=== PATIENT | female | born 1990 | race Caucasian/White ===

== ENCOUNTER → 2019-08-10 10:14 | Outpatient (CLI) | payer OTHER, MEDICAID, SELFPAY ==
[2019-08-10 10:38] LABS: Add Manual Diff / Slide Review NO; Basophils Absolute Auto 100 /uL (0-100); Basophils Percent Auto 0.6 % (0-2); Eosinophils Absolute Auto 100 /uL (0-450); Eosinophils Percent Auto 0.8 % (2-4); Hemoglobin 12.5 g/dL (12.0-16.0); Lymphocytes Absolute Auto 1500 /uL (1100-4500); Lymphocytes Percent Auto 16.9 % (25-40); Mean Corpuscular HGB Conc 33.9 % (30-36); Mean Corpuscular Hemoglobin 29.4 PG (26-34); Mean Corpuscular Volume 86.7 fL (80-100); Monocytes Absolute Auto 600 /uL (0-900); Monocytes Percent Auto 6.8 % (3-14); Neutrophils Absolute Auto 6600 /uL (1500-7000); Neutrophils Percent Auto 74.9 % (50-75); Platelet Count 193 X10^3/uL (150-400); Red Blood Cell Count 4.26 X10^6/uL (4.0-5.2); Red Cell Distribution Width 14.9 % (11.6-14.8); White Blood Cell Count 8.8 X10^3/uL (4.5-11.0)
[2019-08-10 14:40] LABS: Appearance Urine UA SL CLOUDY; Bilirubin Urine UA NEGATIVE (NEGATIVE); Color Urine UA YELLOW; Glucose Urine UA NEGATIVE (Negative); Ketones Urine UA NEGATIVE (NEGATIVE); Leukocyte Esterase Urine UA TRACE (NEGATIVE); Nitrite Urine UA NEGATIVE (Negative); Occult Blood Urine UA NEGATIVE (Negative); Protein Urine UA NEGATIVE (Negative); Specific Gravity Urine UA 1.015 (1.000-1.035); Urobilinogen Urine UA 0.2 E.U./dL (0.2)
[2019-08-10 15:15] LABS: pH Urine UA 7.5 (4.5-8.0)
[2019-08-10 15:16] LABS: RBC Urine None Seen (0-5/HPF)
[2019-08-10 15:22] LABS: Amorphous Sediment Urine 1+; Bacteria Urine Many (>30); Renal Epithelial Cells Urine 0-1/HPF (0-1/HPF); Squamous Epithelial Cell Urine 5-10 /HPF (0-5/HPF); WBC Urine 5-10/HPF (0-5/HPF)
[2019-08-10 16:00] LABS: Hepatitis B Surface Antigen NEGATIVE s/c (NEGATIVE); Rubella Antibody IgG 12.7 IU/mL (>15)
[2019-08-10 16:15] LABS: HIV 1 & 2 Ab/Ag 4th Gen Combo NEGATIVE (NEGATIVE); Hep C Virus Ab w/Reflex Quant NEGATIVE s/c (NEGATIVE)
[2019-08-11 03:07] LABS: RPR Screen Non Reactive (Non Reactive)
[2019-08-11 08:20] LABS: Varicella IgG Antibody <135 index (Immune >165)
== END ==
PROVIDERS: Referring Provider Obstetrics & Gynecology; Visit Provider Obstetrics & Gynecology
DX: Z34.81 Encounter for supervision of other normal pregnancy, first trimester (principal); Z3A.08 8 weeks gestation of pregnancy
CPT/HCPCS: 36415; 80055; 81003; 81015; 86787; 86803; 86850; 86900; 86901; 87077; 87086; 87186; 87389

== ENCOUNTER → 2019-09-04 12:09 | Outpatient (CLI) | payer OTHER, MEDICAID, SELFPAY ==
--- NOTE | 2019-09-04 12:13 | DI.US.S_ITS ---
PROCEDURE: US OB >= 14 WEEKS FETUS INDICATIONS: Anatomy Survey OUTSIDE/PRIOR DATING DATA: Last menstrual period (LMP): Unknown. LMP-based estimated date of delivery (VITO): Unknown. First dating scan (date and location): 06/17/19. Estimated date of delivery (VITO) from first dating scan: 01/29/20. TECHNIQUE: Real-time scanning was performed of the fetus, with image documentation and biometric measurements. Endovaginal scanning: Not performed COMPARISON: [facility], , OB <= 14 WEEKS FETUS, 06/17/2019, 13:54. FINDINGS: General: A single living intrauterine gestation is present. Presentation: Vertex/variable. Placenta: Placental position is anterior, without previa. Amniotic fluid index: 15.3 cm, normal range is 5-24 cm. heart rate: 135 beats per minute. Maternal cervical canal: 5.7 cm long. Normal lower limit is 2.5 cm. biometrics: Biparietal diameter: 4.6 cm, 19 weeks 5 days Head circumference: 16.8 cm, 19 weeks 3 days Abdominal circumference: 14.9 cm, 20 weeks one day Femur length: 3.0 cm, 19 weeks 2 days Estimated gestational age from initial scan: 19 weeks zero days Composite gestational age from present scan: 19 weeks 5 days Estimated weight and percentile: 310 g, 86th percentile Measurement variability for biometric dating: +/- 7 days from 14 weeks to 15 weeks 6 days gestation, +/- 10 days from 16 weeks to 21 weeks 6 days gestation, +/- 2 weeks from 22 weeks to 27 weeks 6 days gestation, +/- 3 weeks for 28 weeks gestation or later. weight reference: 4500 g or EFW >90/95% is considered macrosomia or large for gestational age. EFW <10% is small for gestational age. EFW 5% or less is considered intra-uterine growth restriction. Anatomic survey: Neuro: Ventricles are non-dilated at less than 10 mm. Cisterna magna is normal at 3-11 mm. Cerebellum is normal in size and morphology. Nuchal skin fold: Normal at less than 6 mm between 14-21 weeks gestational age. Face: Nose and lips, facial profile are normal. Spine: No evidence for spina bifida. Heart: 4-chambered heart is present, with normal ventricular outflow tracts. Diaphragm: Diaphragm is intact. Stomach: Left-sided stomach is present. Kidneys: No hydronephrosis. Normal is less than 5 mm in 2nd trimester, less than 7 mm in 3rd trimester. Cord: 3-vessel cord has orthotopic insertion. Bladder: Normal in size. Extremities: All 4 extremities identified. IMPRESSION: Single living intrauterine fetus in vertex/variable presentation. Expected interval growth as above Normal anatomic survey Dictated by: Ayden Washington M.D. on 09/04/2019 at 16:02 Approved by: Ayden Washington M.D. on 09/04/2019 at 16:05
== END ==
PROVIDERS: Referring Provider Obstetrics & Gynecology; Visit Provider Obstetrics & Gynecology
DX: Z36.89 Encounter for other specified antenatal screening (principal); Z3A.19 19 weeks gestation of pregnancy
CPT/HCPCS: 76811

== ENCOUNTER 2019-11-14 21:45 | Emergency (ER) | payer OTHER, MEDICAID, SELFPAY ==
[2019-11-14 21:57] VITALS: BP 125/68; PULSE 70; RESP 20; TEMP 37.1; O2SAT 98; BMI 32.1
--- NOTE | 2019-11-14 22:04 | ED_ITS ---
HPI - Nausea/Vomiting/Diarrhea General Chief complaint: Nausea/Vomiting/Diarrhea Stated complaint: vomiting Time Seen by Provider: 11/14/19 21:55 Source: patient Mode of arrival: Ambulatory Limitations: no limitations History of Present Illness HPI Narrative: 29-year-old female nonsmoker is a 28 weeks and presents with a chief complaint of persistent nausea and vomiting over the course of the day. She has had a relatively easy to this point and woke up feeling a bit nauseated and went to her glucose tolerance test which seemed to make her symptoms much worse. Since then she has had significant nausea and vomiting. She is feeling a bit fatigued and lightheaded. She denies any fever or chills. She has had no runny nose, sore throat or cough. She denies any cramping, contractions, vaginal bleeding or leakage of fluid. She denies dysuria, frequency or urgency. 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 on- call MD complaint: nausea and vomiting Onset (ago): hour(s) Description of Vomiting: food contents Description of Diarrhea: none Associated Abdominal Pain: No Severity: mild Relieving factors: none Exacerbating factors: none Associated symptoms: denies other symptoms and nausea/vomiting Related Data Home Medications Medication Instructions Recorded Confirmed fluoxetine 40 mg capsule 40 mg PO DAILY 05/27/19 05/27/19 prenat.vits,geraldo,mns-[id number]-dovhw 1 tab PO DAILY 05/27/19 05/27/19 Previous Rx's Medication Instructions Recorded nitrofurantoin 100 mg PO BID #60 cap 08/13/19 monohydrate/macrocrystals 100 mg capsule ondansetron 4 mg PO TID-QID PRN #10 tab 11/15/19 Allergies Allergy/AdvReac Type Severity Reaction Status Date / Time No Known Drug Allergies Allergy Unverified 05/27/19 17:55 Review of Systems Constitutional Constitutional: Denies chills, Reports fatigue, Denies fever(s), Denies frequent falls, Denies lethargy and Reports weakness Eyes Eyes: Denies change in vision, Denies eye discharge, Denies irritation and Denies loss of vision ENT Ears, Nose, Mouth, and Throat: Denies change in voice, Denies dizziness, Denies neck pain, Denies sore throat and Denies throat swelling Cardiovascular Cardiovascular: Denies chest pain, Denies irregular heart rhythm, Denies lightheadedness, Denies palpitations, Denies dyspnea, Denies dyspnea on exertion and Denies orthopnea Respiratory Respiratory: Denies cough, Denies dyspnea, Denies dyspnea on exertion and Denies wheezing Gastrointestinal Gastrointestinal: Denies abdominal pain, Denies change in bowel habits, Denies diarrhea, Denies nausea and Reports vomiting Musculoskeletal Musculoskeletal: Denies neck pain and Denies numbness Integumentary/Breasts Skin/Breast: Denies pruritus, Denies erythema, Denies rash and Denies wounds Neurologic Neurologic: Denies behavioral changes, Denies confusion, Denies dizziness, Denies frequent falls, Denies loss of vision, Denies numbness and Reports weakness Psychiatric Psychiatric: Denies anxiety, Denies behavioral changes, Denies confusion, Denies depression, Denies homicidal ideation and Denies suicidal ideation Endocrine Endocrine: Reports fatigue, Denies flushing and Denies palpitations Hematologic/Lymphatic Hematologic/Lymphatic: Denies easy bruising Allergic/Immunologic Allergic/Immunologic: Denies urticaria, Denies throat swelling and Denies wh eezing Patient History Surgical History (Updated 05/27/19 @ 18:04 by Casie Warren MA) delivery delivered (Acute ~03/18/18) delivery delivered (Acute 10/27/12) Social History marital status: unmarried,living together details: Jimy [phone] number of children: 2 household members: significant other and children (2 children ) lives independently: Yes pets and animals: Yes (1 cat, Knows about litter box. 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) special marv needs: No seatbelt use: always water heater temp set < 120 deg: Yes working smoke detector in home: Yes fire extinguisher in home: No carbon monox detector in home: Yes firearms in home: No do you feel safe at home: Yes in current or past relationships, have you been: other (In past relationship) Smoking Status: Never smoker second hand exposure: No alcohol intake: former substance use type: marijuana (Tapering off ) during the past year weight has: decreased > 10 lbs well-balanced diet: rarely or never daily servings fruits/ve-1 caffeine: Yes (Tapering off) eating out: 1-3 times/week Type(s) of exercise: other (Hiking) and yoga frequency: 1-2 times per week Smoking Status: Never smoker alcohol intake frequency: 0-2 drinks per day Substance Use Type: does not use Exam Narrative Exam Narrative: GENERAL: [29] year old patient appears stated age. Well- nourished, well-developed patient, in mild distress. HEAD: Atraumatic. Normocephalic. EYES: Pupils equal round and reactive. Extraocular motions intact. No scleral icterus. No injection or drainage. ENT: Nose without bleeding, purulent drainage. Throat without erythema, tonsillar hypertrophy or exudate. Airway patent. NECK: Trachea midline. Non tender CARDIOVASCULAR: Regular rate and rhythm without murmurs, gallops, or rubs. RESPIRATORY: Clear to auscultation. Breath sounds equal bilaterally. No wheezes, rales, or rhonchi. GASTROINTESTINAL: Abdomen soft, gravid above the umbilicus EXTREMITIES: No edema or joint tenderness. BACK: Nontender without deformity or crepitance. No flank tenderness. NEURO: AOx3. SKIN: No rash or erythema of visible areas Initial Vital Signs Initial Vital Signs: Vital Signs Temperature 98.8 F 11/14/19 21:57 Pulse Rate 70 11/14/19 21:57 Respiratory Rate 20 11/14/19 21:57 Blood Pressure 125/68 11/14/19 21:57 Pulse Oximetry 98 11/14/19 21:57 Course Course Course Narrative: patient with near complete resolution of symptoms, feels great after fluids. Upon discharge sent to L&D at request of OB Orders Ordered: ED Orders 11/14/19 22:35 Urine Microscopic Stat 11/14/19 22:37 Complete Blood Count AUTO DIFF Stat Comprehensive Metabolic Panel Stat Ketones (Beta-Hydroxybutyrate) Stat Magnesium Stat Discontinued Medications Sodium Chloride (Normal Saline 0.9%) 1,000 mls @ 1,000 mls/hr IV BOLUS ONE Stop: 11/14/19 23:04 Last Infusion: 11/14/19 23:36 Dose: 0 mls/hr Documented by: Admin: 11/14/19 22:22 Dose: 1,000 mls/hr Documented by: MARTIN Ondansetron HCl (Zofran) 4 mg IV Q4HR PRN PRN Reason: Nausea And Vomiting Last Admin: 11/14/19 22:22 Dose: 4 mg Documented by: MARTIN Vital Signs Vital signs: Vital Signs - 8 hr 11/14/19 21:57 11/14/19 22:33 11/14/19 22:53 Temperature 98.8 F Pulse Rate 70 62 69 Respiratory Rate 20 17 Blood Pressure 125/68 120/61 Pulse Oximetry 98 94 99 11/14/19 23:00 11/14/19 23:30 11/15/19 00:00 Temperature Pulse Rate 66 62 70 Respiratory Rate Blood Pressure 119/71 107/57 L 110/59 L Pulse Oximetry 100 100 99 MDM - Nausea/Vomiting/Diarrhea Lab Data Result diagrams: 11/14/19 22:37 11/14/19 22:37 Labs: Lab Results 11/14/19 11/14/19 11/14/19 Range/Units 22:35 22:37 22:37 WBC 13.4 H (4.5-11.0) X10^3/uL RBC 4.16 (4.0-5.2) X10^6/uL Hgb 11.6 L (12.0-16.0) g/dL Hct 35.1 L (36-46) % MCV 84.5 (80-100) fL MCH 27.8 (26-34) PG MCHC 32.9 (30-36) % RDW 14.3 (11.6-14.8) % Plt Count 214 (150-400) X10^3/uL Neut % (Auto) Not Reportable Lymph % (Auto) Not Reportable [place] % (Auto) Not Reportable Eos % (Auto) Not Reportable Baso % (Auto) Not Reportable Lymph # (Auto) Not Reportable [place] # (Auto) Not Reportable Baso # (Auto) Not Reportable Total Counted 100 Seg Neutrophils % 86.0 H (38-70) % Lymphocytes % (Manual) 10.0 L (25-45) % Monocytes % (Manual) 4.0 (2-11) % Neutrophils # (Manual) 27369 H (4005-7233) /uL RBC Morphology Normal morphology Sodium 135 L (137-145) mmol/L Potassium 3.7 (3.4-5.1) mmol/L Chloride 102 (98-107) mmol/L Carbon Dioxide 22 (22-32) mmol/L BUN 8 (7-17) mg/dL Creatinine 0.49 L (0.52-1.04) mg/dL Estimated GFR > 60.0 (>60) mL/min BUN/Creatinine Ratio 16.3 (6-22) Glucose 90 (70-100) mg/dL Calcium 9.0 (8.4-10.2) mg/dL Magnesium 1.7 (1.6-2.3) mg/dL Total Bilirubin 0.6 (0.2-1.3) mg/dL AST 29 (14-36) IU/L ALT 19 (<35) IU/L Alkaline Phosphatase 134 H (38-126) U/L Total Protein 7.8 (6.3-8.2) g/dL Albumin 4.3 (3.5-5.0) g/dL Globulin 3.5 (1.7-4.1) g/dL Albumin/Globulin Ratio 1.2 (1.0-2.8) Urine RBC None seen (0-5/HPF) Urine WBC 0-1/hpf (0-5/HPF) Ur Squamous Epith Cells 5-10 /hpf H (0-5/HPF) Urine Bacteria Few (2-10) H (None) Urine Mucus 4+ H (Negative) Ur Culture Indicated? Cult not indicated Ketones (<0.27) mmol/L COVID-19 PCR (Negative) 11/14/19 11/14/19 Range/Units 22:37 22:37 WBC (4.5-11.0) X10^3/uL RBC (4.0-5.2) X10^6/uL Hgb (12.0-16.0) g/dL Hct (36-46) % MCV (80-100) fL MCH (26-34) PG MCHC (30-36) % RDW (11.6-14.8) % Plt Count (150-400) X10^3/uL Neut % (Auto) Lymph % (Auto) [place] % (Auto) Eos % (Auto) Baso % (Auto) Lymph # (Auto) [place] # (Auto) Baso # (Auto) Total Counted Seg Neutrophils % (38-70) % Lymphocytes % (Manual) (25-45) % Monocytes % (Manual) (2-11) % Neutrophils # (Manual) (2591-6436) /uL RBC Morphology Sodium (137-145) mmol/L Potassium (3.4-5.1) mmol/L Chloride (98-107) mmol/L Carbon Dioxide (22-32) mmol/L BUN (7-17) mg/dL Creatinine (0.52-1.04) mg/dL Estimated GFR (>60) mL/min BUN/Creatinine Ratio (6-22) Glucose (70-100) mg/dL Calcium (8.4-10.2) mg/dL Magnesium (1.6-2.3) mg/dL Total Bilirubin (0.2-1.3) mg/dL AST (14-36) IU/L ALT (<35) IU/L Alkaline Phosphatase (38-126) U/L Total Protein (6.3-8.2) g/dL Albumin (3.5-5.0) g/dL Globulin (1.7-4.1) g/dL Albumin/Globulin Ratio (1.0-2.8) Urine RBC (0-5/HPF) Urine WBC (0-5/HPF) Ur Squamous Epith Cells (0-5/HPF) Urine Bacteria (None) Urine Mucus (Negative) Ur Culture Indicated? Ketones 1.07 H (<0.27) mmol/L COVID-19 PCR Negative (Negative) Urine Dip Bedside Urine Glucose Negative Bedside Urine Bilirubin + 1 Bedside Urine Ketone +++ 80 Urine Specific [place] 1.030 Bedside Urine Occult Blood - Negative Bedside Urine pH 6.0 Bedside Urine Protein ++ 100 Bedside Urine Urobilinogen +/- 1mg Bedside Urine Nitrite - Negative Bedside Urine Leukocytes - Negative Esterase Discharge Plan Departure Patient Disposition: Home Clinical Impression: Qualifiers: Weeks of gestation: 28 weeks Qualified Code(s): Z3A.28 - 28 weeks gestation of Vomiting Qualifiers: Vomiting type: unspecified Vomiting Intractability: non-intractable Nausea presence: with nausea Qualified Code(s): R11.2 - Nausea with vomiting, unspecified Discharge Date/Time: 11/15/19 01:46 Instructions: DI for Dehydration -- Adult, DI for Vomiting -- Adult Activity Restrictions/Additional Instructions: Please proceed directly to Labor and Delivery as they are expecting you. 1. Drink plenty of fluids with frequent small sips. 2. For the next 24 hours a clear liquid diet is advised. After that please employ a brat diet which would include bananas, rice, apples, toast. 3. Please take medications as directed. A prescription for Zofran was sent to [facility] in [place] 4. Please follow-up with your doctor in the next 1-2 days. Call the office for an appointment. 5. Please return to the emergency Department for any worsening or persistent symptoms, such as increasing pain or fever. Prescriptions: New ondansetron 4 mg tablet,disintegrating 4 mg PO TID-QID PRN (Reason: nausea and vomiting) Qty: 10 RF: 0 No Action nitrofurantoin monohyd/m-cryst [Macrobid] 100 mg capsule 100 mg PO BID Qty: 60 RF: 5 fluoxetine 40 mg capsule 40 mg PO DAILY RF: 0 prenat.vits,geraldo,[id number]-ehqj-pycef Tablet 1 tab PO DAILY RF: 0 Referrals: Stephany Alanis MD [Physician] -
[2019-11-14] MEDS: ONDANSETRON 4 MG/2 ML INJ IV (22:22)
[2019-11-14] MEDS: SODIUM CHLORIDE 0.9% 1,000 ML 1000 ML IV (22:22)
[2019-11-14 22:33] VITALS: BP 120/61; PULSE 62; RESP 17; O2SAT 94
[2019-11-14 22:50] LABS: RBC Urine None Seen (0-5/HPF)
[2019-11-14 22:52] LABS: Hematocrit 35.1 % (36-46); Hemoglobin 11.6 g/dL (12.0-16.0); Mean Corpuscular HGB Conc 32.9 % (30-36); Mean Corpuscular Hemoglobin 27.8 PG (26-34); Mean Corpuscular Volume 84.5 fL (80-100); Platelet Count 214 X10^3/uL (150-400); Red Blood Cell Count 4.16 X10^6/uL (4.0-5.2); Red Cell Distribution Width 14.3 % (11.6-14.8); White Blood Cell Count 13.4 X10^3/uL (4.5-11.0)
[2019-11-14 22:53] VITALS: PULSE 69; O2SAT 99
[2019-11-14 22:58] LABS: Alanine Aminotransferase 19 IU/L (<35); Albumin 4.3 g/dL (3.5-5.0); Albumin Globulin Ratio 1.2 (1.0-2.8); Alkaline Phosphatase 134 U/L (38-126); Aspartate Aminotransferase 29 IU/L (14-36); BUN Creatinine Ratio 16.3 (6-22); Bilirubin Total 0.6 mg/dL (0.2-1.3); Blood Urea Nitrogen 8 mg/dL (7-17); Carbon Dioxide 22 mmol/L (22-32); Chloride 102 mmol/L (98-107); Estimated Glomerular Filt Rate > 60.0 mL/min (>60); Globulin 3.5 g/dL (1.7-4.1); Glucose 90 mg/dL (70-100); HEMOLYSIS < 15 (0-50); Magnesium 1.7 mg/dL (1.6-2.3); Potassium 3.7 mmol/L (3.4-5.1); Sodium 135 mmol/L (137-145); Total Protein 7.8 g/dL (6.3-8.2)
[2019-11-14 22:59] LABS: Ketones (Beta-Hydroxybutyrate) 1.07 mmol/L (<0.27)
[2019-11-14 23:00] VITALS: BP 119/71; PULSE 66; O2SAT 100
[2019-11-14 23:01] LABS: Add Manual Diff / Slide Review YES
[2019-11-14 23:11] LABS: Bacteria Urine Few (2-10); Culture Indicated Urine Cult Not Indicated; Mucus Urine 4+ (Negative); Squamous Epithelial Cell Urine 5-10 /HPF (0-5/HPF); WBC Urine 0-1/HPF (0-5/HPF)
[2019-11-14 23:30] VITALS: BP 107/57; PULSE 62; O2SAT 100
[2019-11-14 23:36] LABS: Neutrophils Absolute Manual 11524 /uL (3000-5900); RBC Morphology Normal Morphology; Total Cells Counted 100
[2019-11-14 23:53] LABS: COVID19 -Nasal RAPID Negative (Negative)
[2019-11-15] VITALS: BP 110/59; PULSE 70; O2SAT 99
== END 2019-11-15 01:46 | disposition home or self-care (01) ==
PROVIDERS: Emergency Provider Emergency Medicine
DX: O21.9 Vomiting of pregnancy, unspecified (principal); Z3A.28 28 weeks gestation of pregnancy
CPT/HCPCS: 36415; 80053; 81003; 81015; 82009; 83735; 85025; 87635; 96361; 96374; 99284; J2405

== ENCOUNTER 2019-11-15 01:48 | Outpatient (CLI) | payer OTHER, MEDICAID, SELFPAY ==
--- NOTE | 2019-11-15 08:59 | PM.OBTRLD ---
Visit Information Visit Information Date of evaluation: 11/15/19 Primary OB Provider: Stephany Alanis On-call OB Provider: Brittanie Keene Reason for Evaluation: Yes non-stress test and Yes other Comments/Additional reasons for admission: nausea and vomiting [facility] Surgical History (Updated 05/27/19 @ 18:04 by Caise Warren MA) delivery delivered (Acute ~03/18/18) delivery delivered (Acute 10/27/12) Social History marital status: unmarried,living together details: Jimy [phone] number of children: 2 household members: significant other and children (2 children ) lives independently: Yes pets and animals: Yes (1 cat, Knows about litter box. 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 needs: No seatbelt use: always water heater temp set < 120 deg: Yes working smoke detector in home: Yes fire extinguisher in home: No carbon monox detector in home: Yes firearms in home: No do you feel safe at home: Yes in current or past relationships, have you been: other (In past relationship) Smoking Status: Never smoker second hand exposure: No alcohol intake: former substance use type: marijuana (Tapering off ) during the past year weight has: decreased > 10 lbs well-balanced diet: rarely or never daily servings fruits/ve-1 caffeine: Yes (Tapering off) eating out: 1-3 times/week Type(s) of exercise: other (Hiking) and yoga frequency: 1-2 times per week Evaluation Evaluation Baseline heart rate: 135 Variability: Moderate (11-25) monitor accelerations: Present monitor decelerations: Absent Category of Tracing: I Diagnosis, Plan/Disposition Plan/Disposition Plan: Assessment: 29-year-old 3 para 2 at 28 1/2 weeks gestation with nausea and vomiting and subsequent dehydration Patient received IV Zofran and 2 L of IV fluids Plan: Follow-up with Dr. Alanis as scheduled OB Disposition: home
== END 2019-11-15 02:12 | disposition home or self-care (01) ==
LOC: LABOR 02:01 → OB 12-10 10:27
PROVIDERS: PCP Obstetrics & Gynecology; Referring Provider Obstetrics & Gynecology; Visit Provider Obstetrics & Gynecology
DX: O21.9 Vomiting of pregnancy, unspecified (principal); Z3A.28 28 weeks gestation of pregnancy
CPT/HCPCS: 59025; G0378; G0379

== ENCOUNTER → 2019-11-27 09:21 | Outpatient (CLI) | payer OTHER, MEDICAID, SELFPAY ==
[2019-11-27 11:56] LABS: Hemoglobin 9.9 g/dL (12.0-16.0)
[2019-11-27 12:08] LABS: GTT (PREG) 1 Hour PP 50gm Dose 84 mg/dL (76-139)
== END ==
PROVIDERS: PCP Obstetrics & Gynecology; Referring Provider Obstetrics & Gynecology; Visit Provider Obstetrics & Gynecology
DX: Z34.03 Encounter for supervision of normal first pregnancy, third trimester (principal)
CPT/HCPCS: 36415; 82950; 85014; 85018

== ENCOUNTER 2019-12-14 14:06 | Outpatient (CLI) | payer OTHER, MEDICAID, SELFPAY ==
--- NOTE | 2019-12-14 17:09 | PM.OBTRLD ---
Visit Information Visit Information Date of evaluation: 12/14/19 Primary OB Provider: Stephany Alanis Reason for Evaluation: Yes non-stress test Comments/Additional reasons for admission: Patient is a 29-year-old 002 at 33 weeks sent for NST due to low heart rate noted in clinic. No complaints obstetrical or otherwise, contractions not palpable or symptomatic. Vital Signs Vital Signs: 109/60, HR 72 PFSH Surgical History delivery delivered (Acute ~03/18/18) delivery delivered (Acute 10/27/12) Social History marital status: unmarried,living together details: Jimy [phone] number of children: 2 household members: significant other and children (2 children ) lives independently: Yes pets and animals: Yes (1 cat, Knows about litter box. 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 needs: No seatbelt use: always water heater temp set < 120 deg: Yes working smoke detector in home: Yes fire extinguisher in home: No carbon monox detector in home: Yes firearms in home: No do you feel safe at home: Yes in current or past relationships, have you been: other (In past relationship) Smoking Status: Never smoker second hand exposure: No alcohol intake: former substance use type: marijuana (Tapering off ) during the past year weight has: decreased > 10 lbs well-balanced diet: rarely or never daily servings fruits/ve-1 caffeine: Yes (Tapering off) eating out: 1-3 times/week Type(s) of exercise: other (Hiking) and yoga frequency: 1-2 times per week Evaluation Evaluation Baseline heart rate: 125 Variability: Moderate (11-25) monitor accelerations: Present monitor decelerations: Absent Category of Tracing: Reactive Diagnosis, Plan/Disposition Plan/Disposition Plan: Home with standard precautions.
== END 2019-12-14 14:43 | disposition home or self-care (01) ==
LOC: LABOR 14:31 → OB 12-15 09:28
PROVIDERS: PCP Obstetrics & Gynecology; Referring Provider Obstetrics & Gynecology; Visit Provider Obstetrics & Gynecology
DX: O36.8330 Maternal care for abnormalities of the fetal heart rate or rhythm, third trimester, not applicable or unspecified (principal); Z3A.33 33 weeks gestation of pregnancy
CPT/HCPCS: 59025; G0378; G0379

== ENCOUNTER → 2019-12-29 16:46 | Outpatient (CLI) | payer OTHER, MEDICAID, SELFPAY ==
[2019-12-30 15:47] LABS: Strep Grp B PCR NEG for Grp B Strep
== END ==
PROVIDERS: PCP Obstetrics & Gynecology; Visit Provider Obstetrics & Gynecology
DX: Z34.83 Encounter for supervision of other normal pregnancy, third trimester (principal); Z3A.36 36 weeks gestation of pregnancy
CPT/HCPCS: 87653

== ENCOUNTER 2020-01-15 11:54 | Outpatient (CLI) | payer OTHER, MEDICAID, SELFPAY | END 2020-01-15 12:30 | disposition home or self-care (01) | LOC: LABOR 12:38 → OB 01-18 15:08 | PROVIDERS: PCP Obstetrics & Gynecology; Referring Provider Obstetrics & Gynecology; Visit Provider Obstetrics & Gynecology | DX: Z34.83 Encounter for supervision of other normal pregnancy, third trimester (principal); Z3A.38 38 weeks gestation of pregnancy | CPT/HCPCS: 59025; G0378; G0379 ==

== ENCOUNTER → 2020-01-18 09:13 | Outpatient (CLI) | payer OTHER, MEDICAID, SELFPAY ==
[2020-01-19 02:27] LABS: COVID19 Sendout Not Detected (Not Detect)
== END ==
PROVIDERS: PCP Obstetrics & Gynecology; Visit Provider Physician Assistant
DX: Z11.59 Encounter for screening for other viral diseases (principal)
CPT/HCPCS: 87635

== ENCOUNTER 2020-01-19 16:33 | Inpatient (IN) | payer OTHER, MEDICAID, SELFPAY ==
--- NOTE | 2020-01-19 16:42 | DI.US.S_ITS ---
PROCEDURE: US OB BIOPHYSICAL PROFILE INDICATIONS: 39 weeks, previous C/S OUTSIDE/PRIOR DATING DATA: Last menstrual period (LMP): Unknown. LMP-based estimated date of delivery (VITO): Unknown. First dating scan (date and location): 06/17/2019. Estimated date of delivery (VITO) from first dating scan: 01/29/2020. TECHNIQUE: Real-time scanning was performed of the fetus, with image documentation and biometric measurements. Biophysical profile was also obtained. Endovaginal scanning: Not performed COMPARISON: [facility], , US OB >= 14 WEEKS FETUS, 01/15/2020, 11:44. FINDINGS: General: A single living intrauterine gestation is present. Presentation: Vertex Placenta: Placental position is anterior, without previa. Amniotic fluid index: 6 cm, normal range is 5-24 cm. heart rate: 144 beats per minute. Maternal cervical canal: 4.5 cm long. Normal lower limit is 2.5 cm. Biophysical profile: Tone: 2 points. Movement: 2 points. Respiration: 2 points. Largest pocket of fluid: 2 points. Left lower quadrant IMPRESSION: Single live intrauterine . Biophysical profile score 8 of 8. Dictated by: Hollis Mcrae M.D. on 01/19/2020 at 18:35 Approved by: Hollis Mcrae M.D. on 01/19/2020 at 18:38
--- NOTE | 2020-01-19 18:34 | P.HPOB_ITS ---
OB HPI Date/Time Date of admission: 01/19/20 Date Patient Seen: 01/19/20 Time Patient Seen: 18:34 History of Present Condition Chief complaint: observation of labor : 3 Para: 2 Estimated Date of Delivery: 01/26/20 Estimated Gestational Age (weeks): 39 Narrative: Jennifer Alaniz is a 29 year old 002 at 39 weeks 0 days with a history of 2 prior sections, presenting to Labor and delivery with decreased movement and revealed to be in early labor. The patient reports that she has been having contractions since yesterday, with some breaks. She reports that since this afternoon, they have become increasingly frequent, now Q 2-3 and quite painful. She reports vaginal pressure, and reported decreased movement that has now resolved. She denies vaginal bleeding or loss of fluid, and is otherwise feeling well with no neurologic or other complaints. Her has been uncomplicated. She has a history of 2 term sections, the 1st for failure to progress and the 2nd for scheduled repeat. The patient has a history of frequent UTIs and has been on antibiotics during this , Keflex since 36 weeks. She has no other contributory medical or surgical history, though anemia was revealed at her 3rd trimester labs which was treated with oral iron. Indications Operative indications ( section): previous uterine surgery History of Present care: good care, initiated at week # (8), number of visits (11) and pounds weight gain (51) Dating criteria: LMP confirmed by 1st trimester US Ultrasounds: normal 1st trimester US and normal mid trimester US Obstetrical complications: none Medical complications: none Preadmission Labs Blood type: O (+) positive -: Antibody screen: negative, GBS status: negative, HBsAG: negative, HIV: negative and RPR/VDLR: negative -: Rubella: not immune and Varicella: not immune Integrated screen: declined aneuploidy screening Urine: wnl 1 hr GTT: 84 Prior (ies) History: G1: 10/27/12, 37 wks, pCS for labor arrest, F, Ralph G2: 03/18/18, 40 wks, F, rCS, [place] Evaluation Evaluation Baseline heart rate: 135 Variability: Moderate (11-25) monitor accelerations: Present monitor decelerations: Variable (Rare) Contraction Frequency (minutes): 3 Uterine Contraction Intensity: Moderate Category of Tracing: Reactive Cervical dilation (cm): 0 Cervical effacement (%): 100 station: -1 Comments: Contractions not always visible on toco but audible from nurse's station, Q 2-3. FOR[facility]LY [facility], [facility] Surgical History delivery delivered (Acute ~03/18/18) delivery delivered (Acute 10/27/12) Social History marital status: unmarried,living together details: Jimy [phone] number of children: 2 household members: significant other and children (2 children ) lives independently: Yes pets and animals: Yes (1 cat, Knows about litter box. 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, [employer]) special marv needs: No seatbelt use: always water heater temp set < 120 deg: Yes working smoke detector in home: Yes fire extinguisher in home: No carbon monox detector in home: Yes firearms in home: No do you feel safe at home: Yes in current or past relationships, have you been: other (In past relationship) Smoking Status: Never smoker second hand exposure: No alcohol intake: former substance use type: marijuana (Tapering off ) during the past year weight has: decreased > 10 lbs well-balanced diet: rarely or never daily servings fruits/ve-1 caffeine: Yes (Tapering off) eating out: 1-3 times/week Type(s) of exercise: other (Hiking) and yoga frequency: 1-2 times per week Meds Home Medications and Allergies Home Medications Medication Instructions Recorded Confirmed Type fluoxetine 40 mg capsule 40 mg PO DAILY 05/27/19 01/15/20 History prenat.vits,geraldo,qjf-qvqd-gdxgx 1 tab PO DAILY 05/27/19 01/15/20 History ondansetron 4 mg PO TID-QID PRN #10 tab 11/15/19 01/15/20 Rx cephalexin 500 mg tablet 500 mg PO DAILY #30 tab 12/29/19 01/15/20 Rx Allergies Allergy/AdvReac Type Severity Reaction Status Date / Time No Known Drug Allergies Allergy Verified 01/15/20 11:37 Review of Systems Constitutional Constitutional: Reports system reviewed and no additional complaints, except as documented Cardiovascular Cardiovascular: Reports system reviewed and no additional complaints, except as documented Respiratory Respiratory: Reports system reviewed and no additional complaints, except as documented Gastrointestinal Gastrointestinal: Reports as per HPI Genitourinary Genitourinary: Reports as per HPI Musculoskeletal Musculoskeletal: Reports as per HPI Neurologic Neurologic: Reports as per HPI Exam Vital Signs (past 8 hours): 127/69, HR audibly in 90s, T 37.0 Const General: cooperative and healthy appearing Other: resting through contractions Resp Effort & Inspection: normal respiratory effort Auscultation: clear to auscultation bilaterally Cardio Rate: regular rate Rhythm: regular rhythm GI Palpation: soft and tender (over prior CS incision) Extrem General: normal to inspection Assessment and Plan Assessment and Plan Assessment and Plan narrative: This patient presents in early labor, susana painfully q.3 and susana since yesterday, fully effaced. Reassuring status the patient continues to reported subjectively decreased movement. Given the patient's 2 prior sections, decision was made to proceed with repeat section tonight rather than waiting for her scheduled repeat in 2 days time. Risks and benefits of this discussed with patient, who vocalized understanding. Informed consent was reiterated. Patient will be admitted for repeat section. No tubal ligation planned, patient planning ParaGard. Covid testing was negative yesterday. - CBC, T&S - cEFM, toco - OR notified and prepping for section
[2020-01-19] MEDS: LACTATED RINGERS 1,000 ML 100 ML IV ×3 (18:35→21:01)
[2020-01-19 18:51] LABS: Add Manual Diff / Slide Review NO; Basophils Absolute Auto 0 /uL (0-100); Basophils Percent Auto 0.4 % (0-2); Eosinophils Absolute Auto 0 /uL (0-450); Eosinophils Percent Auto 0.4 % (2-4); Hematocrit 30.6 % (36-46); Lymphocytes Absolute Auto 1800 /uL (1100-4500); Lymphocytes Percent Auto 16.4 % (25-40); Mean Corpuscular HGB Conc 32.6 % (30-36); Mean Corpuscular Hemoglobin 25.3 PG (26-34); Mean Corpuscular Volume 77.8 fL (80-100); Monocytes Absolute Auto 900 /uL (0-900); Monocytes Percent Auto 7.7 % (3-14); Neutrophils Absolute Auto 8400 /uL (1500-7000); Neutrophils Percent Auto 75.1 % (50-75); Platelet Count 184 X10^3/uL (150-400); Red Blood Cell Count 3.93 X10^6/uL (4.0-5.2); Red Cell Distribution Width 16.6 % (11.6-14.8); White Blood Cell Count 11.3 X10^3/uL (4.5-11.0)
[2020-01-19 18:52] VITALS: BP 127/69
--- NOTE | 2020-01-19 19:53 | SUR.OPER ---
Supine on Padded OR bed, head on pillow, safety belt at thigh, arms secured on padded arm boards at <90 degrees abduction. Bump under right buttock. Legs uncrossed with pillow under knees, gel pad to heels, tape over blanket to lower legs.
[2020-01-19] MEDS: CITRIC ACID/SODIUM CITRATE 15 ML SOLUTION PO (20:00)
[2020-01-19] MEDS: CEFAZOLIN 2 GM/100 ML FROZ.PIGGY IV (20:09)
--- NOTE | 2020-01-19 21:07 | SUR.OPER ---
viable baby boy born at 2041, placenta delivered at 2044, placenta and cord blood sent to OB with OB RN
[2020-01-19 21:42] VITALS: BP 114/55; PULSE 78; RESP 16; TEMP 36.1; O2SAT 92
[2020-01-19 21:46] VITALS: BP 119/56; PULSE 79; RESP 15; O2SAT 97
--- NOTE | 2020-01-19 21:50 | P.OP_ITS ---
Operative Date/Time/Diagnoses Date of procedure: 01/19/20 Time of procedure: 21:50 Pre-op diagnosis: labor, 2x prior CS Post-op diagnosis: same Procedure & Clinicians Procedure: repeat section Same procedure as scheduled: Yes Indications: term , labor Surgeon: Stephany Alanis Solar Installer Pv: Soha Kraus Anesthesia Type: Spinal Operative Notes Findings: Significant scar tissue between fascia and rectus muscle. Moderate amount of scar tissue between rectus and peritoneum. Moderate scar tissue between peritoneum and uterus. Normal uterus, tubes, and ovaries. Uterine window at site of prior hysterotomy. Closure Type: primary Specimen(s): none sent Estimated Blood Loss (mL): 500 Procedure in detail: EBL: 500ccs Fluids:2400ccs UOP: 300ccs clear urine Findings: Male infant in cephalic presentation, Apgars 7+8, weight 7#15, normal uterus, tubes, ovaries. Procedures: The patient was taken to the operating room where spinal anesthesia was placed and found to be adequate. She was prepped and draped in the normal sterile fashion in the dorsal supine position with a leftward tilt. A Pfannenstiel skin incision was made with a scalpel and carried through to the underlying layer of fascia. The fascia was incised in the midline and the incision extended laterally with Kaufman scissors. The superior aspect of this incision was grasped with Bebe clamps, elevated, and the underlying rectus muscles dissected off with the curved Kaufman scissors. Attention was then turned to the inferior aspect of this incision which, in a similar fashion, was grasped, tented up with the Bebe clamps, and the rectus muscles dissected off with the curved Kaufman scissors. The rectus muscles were then in the midline, and the peritoneum identified, tented up, and entered sharply with Metzenbaum scissors. The peritoneal incision was extended superiorly and inf eriorly with good visualization of the bladder, with reduction of a moderate amount of scar tissue.. The bladder blade was inserted and the vesicouterine peritoneum identified, grasped with pickups, and entered sharply with the Metzenbaum scissors. This incision was extended laterally with ongoing reduction of scar tissue, and the bladder flap created digitally. A uterine window was noted with visible fluid and floating vernix. The bladder blade was then reinserted and the lower uterine segment incised in transverse fashion with the scalpel. The uterine incision was bluntly extended laterally. The bladder blade was removed, and the 's head delivered atraumatically. The baby was delivered crying, was dried and stimulated, had good tone. After 30 seconds of delayed cord clamping, the cord was clamped and cut. The nose and mouth were suctioned as needed with a bulb syringe, and the infant was handed off to awaiting pediatricians. The placenta was then removed manually, and the uterus was exteriorized and cleared of all clots and debris. The uterine incision was repaired with 1-0 chromic in a running, locked fashion and a 2nd layer of the same suture was used to obtain excellent hemostasis. The uterus was returned to the abdomen, and the gutters were cleared of all clots and debris. The bladder flap was closed with 2 0 Vicryl in a running fashion. The peritoneum was noted to have multiple apices due to reduction of scar tissue, and was not closed. The fascia was reapproximated with 0 Vicryl in a running fashion. The subcutaneous layer was placed with 3 0 Vicryl in an interrupted fashion and the skin was closed with 4- 0 biosyn in a running fashion. The patient tolerated the procedure well, and sponge lap and needle counts were correct x2. 2 g of Ancef were given at commencement of the case. The patient was taken to the recovery room in stable condition. Complications: none Post-operative Condition: stable Disposition: PACU Plan for aftercare: Routine postoperative care
[2020-01-19 21:51] VITALS: BP 112/77; PULSE 72; RESP 13; O2SAT 98
[2020-01-19 21:56] VITALS: BP 119/75; PULSE 65; RESP 10; O2SAT 97
--- NOTE | 2020-01-19 21:56 | SUR.PHASEI ---
awake, comfortable, oriented and pleasant. HOB elevated 20 degrees, taking ice chips. Denies pain/nausea.
[2020-01-19 22:06] VITALS: BP 116/71; PULSE 65; RESP 13; O2SAT 99
--- NOTE | 2020-01-19 22:32 | SUR.PHASEI ---
2213 ate one small cup of ice chips, continues to have no pain/nausea. Pleasant and comfortable. To , bed down and locked, multiple staff in the room for report. Dad and baby present. All questions answered. Stable
[2020-01-20] MEDS: OXYCODONE IR 10 MG TABLET PO ×5 (00:57→22:54)
[2020-01-20] MEDS: IBUPROFEN 600 MG TABLET PO ×4 (00:57→21:07)
[2020-01-20] MEDS: LACTATED RINGERS 1,000 ML 100 ML IV ×2 (00:58→07:53)
[2020-01-20] MEDS: ONDANSETRON 4 MG/2 ML INJ IV (03:04)
[2020-01-20] MEDS: OXYCODONE IR 5 MG TABLET PO (06:18)
[2020-01-20 07:25] LABS: Add Manual Diff / Slide Review NO; Basophils Absolute Auto 0 /uL (0-100); Basophils Percent Auto 0.1 % (0-2); Eosinophils Absolute Auto 0 /uL (0-450); Hematocrit 27.2 % (36-46); Hemoglobin 8.9 g/dL (12.0-16.0); Lymphocytes Absolute Auto 1200 /uL (1100-4500); Lymphocytes Percent Auto 6.6 % (25-40); Mean Corpuscular HGB Conc 32.9 % (30-36); Mean Corpuscular Hemoglobin 25.4 PG (26-34); Mean Corpuscular Volume 77.3 fL (80-100); Monocytes Absolute Auto 1000 /uL (0-900); Monocytes Percent Auto 5.4 % (3-14); Neutrophils Absolute Auto 15500 /uL (1500-7000); Neutrophils Percent Auto 87.9 % (50-75); Platelet Count 166 X10^3/uL (150-400); Red Blood Cell Count 3.51 X10^6/uL (4.0-5.2); Red Cell Distribution Width 16.5 % (11.6-14.8); White Blood Cell Count 17.7 X10^3/uL (4.5-11.0)
[2020-01-20] MEDS: DOCUSATE 250 MG CAPSULE PO (07:52)
--- NOTE | 2020-01-20 13:12 | P.PNOB_ITS ---
Subjective - OB Subjective Patient comments: no complaints and pain well controlled [place] baby status: doing well [place] feeding status: exclusively breast feeding Date Patient Seen: 01/20/20 Time Patient Seen: 13:12 Interval history: Patient is doing well post repeat section. She is breast-feeding without difficulty. She just had her Lee catheter removed has not tried to urinate yet. Pain is well controlled. Exam Vital Signs (past 8 hours): Blood pressure 117/62, pulse 69, temperature 98.8? Oxygen Delivery Method Room Air Narrative Exam Narrative: Patient's abdomen is soft, nontender. Uterus is firm, at U, appropriately tender. Aquacel dressing is completely dry. Mild lochia. Extremities without edema and nontender. Objective Labs Result Diagrams: 01/20/20 06:40 Labs: Laboratory Results - last 24 hr 01/19/20 01/19/20 01/20/20 18:35 18:35 06:40 WBC 11.3 H 17.7 H D RBC 3.93 L 3.51 L Hgb 10.0 L 8.9 L Hct 30.6 L 27.2 L MCV 77.8 L 77.3 L MCH 25.3 L 25.4 L MCHC 32.6 32.9 RDW 16.6 H 16.5 H Plt Count 184 166 Neut % (Auto) 75.1 H 87.9 H Lymph % (Auto) 16.4 L 6.6 L [place] % (Auto) 7.7 5.4 Eos % (Auto) 0.4 L 0.0 L Baso % (Auto) 0.4 0.1 Neut # (Auto) 8400 H 91924 H Lymph # (Auto) 1800 1200 [place] # (Auto) 900 1000 H Eos # (Auto) 0 0 Baso # (Auto) 0 0 Blood Type O Positive Antibody Screen Negative Assessment & Plan Assessment and Plan (1) Delivery by section: Status: Acute Plan day: 1 plan OB: routine postop care Time Spent With Patient Time: Total time spent is greater than 50% in coordination of care (as documented) at patient's floor/unit and/or counseling patient: Time with patient: less than 15 minutes
[2020-01-20 14:15] VITALS: TEMP 37.7
[2020-01-20] MEDS: ACETAMINOPHEN 325 MG TABLET 650 MG PO (14:15)
[2020-01-20 22:54] VITALS: BP 137/88; PULSE 93; RESP 18; TEMP 36.5
[2020-01-21] MEDS: OXYCODONE IR 5 MG TABLET PO ×3 (03:09→10:34)
[2020-01-21] MEDS: IBUPROFEN 600 MG TABLET PO ×2 (03:09→09:09)
[2020-01-21] MEDS: DOCUSATE 250 MG CAPSULE PO (09:09)
--- NOTE | 2020-01-21 09:48 | PM.OBDS.1 ---
Discharge Providers Provider Date of admission: 01/19/20 16:33 Discharge Date: 01/21/20 Primary care physician: Stephany Alanis MD Consults: 01/19/20 22:54 Consult to Proposal Review Analyst Routine Comment: Discharge provider: Stephany Alanis MD Summary Hospital Course Date Patient Seen: 01/21/20 Time Patient Seen: 09:30 Procedures: Repeat section Hospital Course: This patient is a 29-year-old now para 3 postop day 2 status post third repeat section, performed after the patient presented in early labor at term. The surgery was uncomplicated, and the patient met postoperative goals appropriately with an uncomplicated recovery. She was discharged on postop day 2 with routine precautions and follow-up in 1 week. Peripartum Data Infant Delivery Method: Section Procedures: Repeat section complications: none 1: Gender: Male (Meg) Disposition of : home Discharge Diagnosis (1) Delivery by section: Status: Acute Status at Discharge Cognitive/behavioral status at discharge: oriented Functional status at discharge: independent ambulation Overall status at discharge: patient is progressing back to baseline Time Spent with Patient Time attestation: Total time spent providing and/or coordinating discharge services: Time spent: Greater than 30 minutes Objective Labs Result Diagrams: 01/20/20 06:40 Exam Vital Signs (past 8 hours): 118/79, heart rate 79 Oxygen Delivery Method Room Air Narrative Exam Narrative: Patient resting in bed. Patient ambulating, tolerating p.o., voiding, passing flatus, good pain control. No headaches, no chest pain, no other complaints. Lochia mild to moderate. Const General: cooperative, healthy appearing and comfortable Resp Effort & Inspection: normal respiratory effort Cardio Rate: regular rate Rhythm: regular rhythm GI Inspection: distended (Soft, nontender) and incision (Clean, dry, intact) Palpation: soft and No tender Skin General: no rashes or lesions noted Extrem General: normal to inspection Discharge Plan Discharge Plan Patient Disposition: Home Discharge orders & Medications Prescriptions: New oxycodone 5 mg capsule 5 mg PO Q6H PRN (Reason: pain) Qty: 10 RF: 0 docusate sodium 100 mg capsule 100 mg PO BID Qty: 30 RF: 0 acetaminophen 325 mg capsule 650 mg PO Q6H PRN (Reason: pain) Qty: 20 RF: 0 Continued fluoxetine 40 mg capsule 40 mg PO DAILY RF: 0 prenat.vits,geraldo,xge-rhax-aqrxr Tablet 1 tab PO DAILY RF: 0 Discontinued cephalexin 500 mg tablet 500 mg PO DAILY Qty: 30 RF: 0 ondansetron 4 mg tablet,disintegrating 4 mg PO TID-QID PRN (Reason: nausea and vomiting) Qty: 10 RF: 0 Follow up/Referrals: Stephany Alanis MD [Primary Care Provider] - 1 Week (incision check) Diet/Activity/Treatments Diet: Regular Activity: Nothing in the vagina for 6 weeks. Avoid lifting more than 10 lb for 6 weeks. If you have increasing bleeding soaking more than 2 pads an hour for 2 hours, headaches, visual changes, chest pain or trouble breathing, increasing pain not controlled by medications, difficulty voiding or passing flatus or bowel movements, or any other questions or symptoms, call the clinic number or come to the emergency room. Skin/Wound/Dressing Care Report to your healthcare provider any signs of infection, such as:: chills, fever, night sweats, increased pain, unusual drainage and unusual redness Visit Report/Discharge Packet Instructions: DI for Discharge Data Primary Care Provider: Stephany Alanis
[2020-01-21] MEDS: ACETAMINOPHEN 325 MG TABLET 650 MG PO (10:34)
[2020-01-21] MEDS: MEASLES,MUMPS,RUBELLA VACC/PF 0.5 ML VIAL SUBCUT (10:56)
== END 2020-01-21 11:48 | disposition home or self-care (01) | DRG 540 ==
PROVIDERS: Admitting Provider Obstetrics & Gynecology; PCP Obstetrics & Gynecology; Referring Provider Obstetrics & Gynecology; Visit Provider Obstetrics & Gynecology
PROC: 10D00Z1 Extraction of Products of Conception, Low, Open Approach (ICD-10-PCS; CPT 59514; principal; 2020-01-19 19:45)
DX: O34.219 Maternal care for unspecified type scar from previous cesarean delivery (principal); Z3A.39 39 weeks gestation of pregnancy; Z37.0 Single live birth; O99.02 Anemia complicating childbirth; Z11.59 Encounter for screening for other viral diseases
CPT/HCPCS: 36415; 59050; 59514; 76819; 85025; 86850; 86900; 86901; 87635; G0379; J0690; J2405

== ENCOUNTER → 2021-07-20 13:40 | Outpatient (CLI) | payer OTHER, MEDICAID, SELFPAY ==
--- NOTE | 2021-07-20 13:42 | DI.RAD.S_ITS ---
PROCEDURE: XR HAND LT MIN 3V INDICATIONS: left finger swelling TECHNIQUE: 3 views of the hand(s) acquired. COMPARISON: None. FINDINGS: Bones: No fractures or dislocations. Carpal bones are normally aligned. No suspicious bony lesions. Soft tissues: No suspicious soft tissue calcifications. IMPRESSION: Normal left hand Dictated by: Caesar Royal M.D. on 07/20/2021 at 15:29 Approved by: Caesar Royal M.D. on 07/20/2021 at 15:31
[2021-07-20 15:31] LABS: Add Manual Diff / Slide Review NO; Basophils Absolute Auto 0 /uL (0-100); Basophils Percent Auto 0.4 % (0-2); Eosinophils Absolute Auto 100 /uL (0-450); Eosinophils Percent Auto 1.4 % (2-4); Hematocrit 41.1 % (36-46); Hemoglobin 13.7 g/dL (12.0-16.0); Lymphocytes Absolute Auto 2300 /uL (1100-4500); Lymphocytes Percent Auto 33.1 % (25-40); Mean Corpuscular HGB Conc 33.4 % (30-36); Mean Corpuscular Hemoglobin 28.1 PG (26-34); Mean Corpuscular Volume 84.2 fL (80-100); Monocytes Absolute Auto 600 /uL (0-900); Monocytes Percent Auto 8.2 % (3-14); Neutrophils Absolute Auto 3900 /uL (1500-7000); Neutrophils Percent Auto 56.9 % (50-75); Platelet Count 232 X10^3/uL (150-400); Red Blood Cell Count 4.88 X10^6/uL (4.0-5.2); Red Cell Distribution Width 14.4 % (11.6-14.8); White Blood Cell Count 6.8 X10^3/uL (4.5-11.0)
[2021-07-20 15:47] LABS: Alanine Aminotransferase 19 IU/L (<35); Albumin 4.8 g/dL (3.5-5.0); Albumin Globulin Ratio 1.3 (1.0-2.8); Alkaline Phosphatase 60 U/L (38-126); Aspartate Aminotransferase 25 IU/L (14-36); BUN Creatinine Ratio 13.1 (6-22); Bilirubin Total 0.3 mg/dL (0.2-1.3); Blood Urea Nitrogen 13 mg/dL (7-17); Calcium 8.7 mg/dL (8.4-10.2); Carbon Dioxide 30 mmol/L (22-32); Chloride 100 mmol/L (98-107); Estimated Glomerular Filt Rate > 60.0 mL/min (>60); Globulin 3.6 g/dL (1.7-4.1); Glucose 81 mg/dL (70-100); HEMOLYSIS < 15 (0-50); Potassium 3.8 mmol/L (3.4-5.1); Sodium 140 mmol/L (137-145); Total Protein 8.4 g/dL (6.3-8.2)
[2021-07-20 15:53] LABS: Rheumatoid Factor < 8.6 IU/mL (<12.0)
[2021-07-20 16:07] LABS: Erythrocyte Sedimentation Rate 5 MM/HR (0-20)
[2021-07-20 16:38] LABS: TSH w/ Reflex to FT4 0.95 uIU/mL (0.47-4.68)
[2021-07-25 13:36] LABS: ANA Screen, IFA Negative (.)
== END ==
PROVIDERS: PCP Family Medicine; Referring Provider Family Medicine; Visit Provider Family Medicine
DX: M79.89 Other specified soft tissue disorders (principal); M25.50 Pain in unspecified joint; D64.9 Anemia, unspecified; F41.9 Anxiety disorder, unspecified
CPT/HCPCS: 36415; 73130; 80053; 84443; 85025; 85651; 86038; 86430

== ENCOUNTER → 2022-08-27 09:34 | Outpatient (CLI) | payer OTHER, MEDICAID, SELFPAY ==
--- NOTE | 2022-08-27 09:36 | DI.US.S_ITS ---
PROCEDURE: US OB <= 14 WEEKS FETUS INDICATIONS: DATING OUTSIDE/PRIOR DATING DATA: Last menstrual period (LMP): 07/08/2022. LMP-based estimated date of delivery (VITO): 04/14/2023. First dating scan (date and location): 12/28/2022. Estimated date of delivery (VITO) from first dating scan: 04/18/2023. The calculations are made using the ultrasound VITO of 04/18/2023. TECHNIQUE: Real-time scanning was performed of the fetus and maternal pelvic organs, with image documentation. Endovaginal scanning was also performed to better visualize the fetus and maternal ovaries. COMPARISON: [facility], US, US OB <= 14 WEEKS FETUS, 06/17/2019, 13:54. FINDINGS: Embryo: [place]-rump length measures 0.7 cm, 6 weeks 4 days Heart rate: 121 beats per minute The a yolk sac is present. Maternal organs: There is a probable corpus luteal cyst of the left ovary. IMPRESSION: 1. Very early living 1st trimester intrauterine with crown-rump length and heartbeat measuring 6 weeks 4 days. We strive to produce accurate, complete, and clear reports of imaging services. To assist us in improving patient care, this report was composed using standard report templates and voice recognition software. Therefore, it may contain abnormal punctuation, insertions and/or omissions. Occasional wrong-word or sound-alike substitutions may occur. Though we review the report and make efforts to correct it, we do recommend that the report be read carefully in proper context to recognize any text inaccuracies. Dictated by: Raj Vivar M.D. on 08/27/2022 at 14:34 Approved by: Raj Vivar M.D. on 08/27/2022 at 14:35
== END ==
PROVIDERS: PCP Family Medicine; Referring Provider Family Medicine; Visit Provider Family Medicine
DX: Z34.91 Encounter for supervision of normal pregnancy, unspecified, first trimester (principal); Z3A.01 Less than 8 weeks gestation of pregnancy
CPT/HCPCS: 76801; 76817

== ENCOUNTER → 2022-10-05 14:33 | Outpatient (CLI) | payer OTHER, MEDICAID, SELFPAY ==
[2022-10-05 18:45] LABS: Urine N gonorrhoeae NOT DETECTED
[2022-10-05 18:48] LABS: Urine Chlamydia NOT DETECTED
== END ==
PROVIDERS: PCP Family Medicine; Visit Provider Obstetrics & Gynecology
DX: Z34.81 Encounter for supervision of other normal pregnancy, first trimester (principal); Z3A.12 12 weeks gestation of pregnancy
CPT/HCPCS: 87491; 87591

== ENCOUNTER → 2022-11-07 08:56 | Outpatient (CLI) | payer OTHER, MEDICAID, SELFPAY ==
[2022-11-07 10:00] LABS: Add Manual Diff / Slide Review NO; Basophils Absolute Auto 100 /uL (0-100); Basophils Percent Auto 0.7 % (0-2); Eosinophils Absolute Auto 100 /uL (0-450); Eosinophils Percent Auto 1.7 % (2-4); Hematocrit 35.8 % (36-46); Hemoglobin 12.2 g/dL (12.0-16.0); Lymphocytes Absolute Auto 1800 /uL (1100-4500); Lymphocytes Percent Auto 21.1 % (25-40); Mean Corpuscular HGB Conc 34.2 % (30-36); Mean Corpuscular Hemoglobin 30.1 PG (26-34); Mean Corpuscular Volume 87.8 fL (80-100); Monocytes Absolute Auto 600 /uL (0-900); Monocytes Percent Auto 7.1 % (3-14); Neutrophils Absolute Auto 5800 /uL (1500-7000); Neutrophils Percent Auto 69.4 % (50-75); Platelet Count 206 X10^3/uL (150-400); Red Blood Cell Count 4.07 X10^6/uL (4.0-5.2); Red Cell Distribution Width 14.2 % (11.6-14.8); White Blood Cell Count 8.4 X10^3/uL (4.5-11.0)
[2022-11-08 09:38] LABS: Varicella IgG Antibody <135 index (Immune >165)
[2022-11-08 17:31] LABS: Hepatitis B Surface Antigen NEGATIVE s/c (NEGATIVE); Rubella Antibody IgG 86.2 IU/mL (>15)
[2022-11-08 17:49] LABS: HIV 1 & 2 Ab/Ag 4th Gen Combo NEGATIVE (NEGATIVE); Hep C Virus Ab w/Reflex Quant NEGATIVE s/c (NEGATIVE)
[2022-11-09 08:10] LABS: RPR Screen Non Reactive (Non Reactive)
[2022-11-10 21:06] LABS: Estriol, Free 1.46 ng/mL (.); Inhibin A, Dimeric 115.05 pg/mL (.); Inhibin A, MoM 0.78 (.); Maternal Ethnicity Caucasian (.); Maternal Weight 157 lbs (.); Number of Fetuses No (.); OSBR Risk 1 IN 10000 (.); Results Report (.); Test Results *Screen Negative* (.); hCG, MoM 0.83 (.); hCG, Serum 25831 mIU/mL (.)
== END ==
PROVIDERS: PCP Family Medicine; Referring Provider Specialist; Visit Provider Specialist
DX: Z34.91 Encounter for supervision of normal pregnancy, unspecified, first trimester (principal); Z34.82 Encounter for supervision of other normal pregnancy, second trimester; Z3A.17 17 weeks gestation of pregnancy
CPT/HCPCS: 36415; 80055; 82105; 82677; 84702; 86336; 86787; 86803; 86850; 86900; 86901; 87086; 87389

== ENCOUNTER → 2022-11-28 16:11 | Outpatient (CLI) | payer OTHER, MEDICAID, SELFPAY ==
--- NOTE | 2022-11-28 16:12 | DI.US.S_ITS ---
PROCEDURE: US OB >= 14 WEEKS FETUS INDICATIONS: 20 wk FAS OUTSIDE/PRIOR DATING DATA: Last menstrual period (LMP): 07/08/2022. LMP-based estimated date of delivery (IVTO): 04/14/2023 First dating scan (date and location): 08/27/2022 Estimated date of delivery (VITO) from first dating scan: 04/18/2023. The calculations are made using the ultrasound VITO of 04/18/2023. TECHNIQUE: Real-time scanning was performed of the fetuses, with image documentation and biometric measurements. COMPARISON: [facility], , US OB >= 14 WEEKS FETUS, 01/15/2020, 11:44. FINDINGS: General: Single intrauterine with vertex presentation. Amniotic fluid index (composite): Not measured Maternal cervical canal: 4.2 cm long. Normal lower limit is 2.5 cm. Placental position is anterior, cord is marginal measuring 2.1 cm. heart rate: 143 beats per minute. biometrics: Biparietal diameter: 4.6 cm: 19 weeks 6 days Head circumference: 17.5 cm: 20 weeks 0 days Abdominal circumference: 14.8 cm: 20 weeks 1 day Femur length: 3.3 cm: 20 weeks 2 days Composite gestational age from present scan: 20 weeks 1 day Estimated weight and percentile: 339 grams Anatomic survey: Neuro: Ventricles are normal at less than 10 mm. Cisterna magna is normal at 3-11 mm. Cerebellum is normal in size and morphology. Nuchal skin fold: Normal at less than 6 mm between 14 and 21 weeks gestational age. Face: Nose and lips, facial profile are normal. Spine: No evidence for spina bifida. Heart: 4 chambered heart is present, with normal ventricular outflow tracts. Diaphragm: Diaphragm is intact. Stomach: Left-sided stomach is present. Kidneys: No hydronephrosis. Normal ranges are less than 5 mm in 2nd trimester, less than 7 mm in 3rd trimester. Cord: 3 vessel cord has orthotopic insertion. Bladder: Normal in size. Extremities: All 4 extremities are visualized. IMPRESSION: 1. Single live intrauterine with a composite ultrasound age of 20 weeks 1 day. 2. Marginal cord measuring 2.1 cm. We strive to produce accurate, complete, and clear reports of imaging services. To assist us in improving patient care, this report was composed using standard report templates and voice recognition software. Therefore, it may contain abnormal punctuation, insertions and/or omissions. Occasional wrong-word or sound-alike substitutions may occur. Though we review the report and make efforts to correct it, we do recommend that the report be read carefully in proper context to recognize any text inaccuracies. Dictated by: Caesar Royal M.D. on 11/29/2022 at 10:43 Approved by: Caesar Royal M.D. on 11/29/2022 at 10:50
== END ==
PROVIDERS: PCP Family Medicine; Referring Provider Specialist; Visit Provider Specialist
DX: Z34.82 Encounter for supervision of other normal pregnancy, second trimester (principal); Z3A.20 20 weeks gestation of pregnancy
CPT/HCPCS: 76811

== ENCOUNTER → 2023-02-20 09:11 | Outpatient (CLI) | payer OTHER, MEDICAID, SELFPAY ==
[2023-02-20 11:47] LABS: Hematocrit 33.9 % (36-46); Hemoglobin 11.4 g/dL (12.0-16.0)
[2023-02-20 12:12] LABS: GTT (PREG) 1 Hour PP 50gm Dose 93 mg/dL (76-139)
== END ==
PROVIDERS: PCP Family Medicine; Referring Provider Student in an Organized Health Care Education/Training Program; Visit Provider Student in an Organized Health Care Education/Training Program
DX: Z34.82 Encounter for supervision of other normal pregnancy, second trimester (principal); Z3A.27 27 weeks gestation of pregnancy
CPT/HCPCS: 82950; 85014; 85018

== ENCOUNTER 2023-03-20 15:39 | Observation (INO) | payer OTHER, MEDICAID, SELFPAY ==
[2023-03-20] MEDS: LACTATED RINGERS 1,000 ML 1000 ML IV ×2 (17:00→19:30)
[2023-03-20 17:07] LABS: Bilirubin Urine UA NEGATIVE (NEGATIVE); Color Urine UA YELLOW; Glucose Urine UA NEGATIVE (Negative); Ketones Urine UA NEGATIVE (NEGATIVE); Leukocyte Esterase Urine UA NEGATIVE (NEGATIVE); Nitrite Urine UA NEGATIVE (Negative); Occult Blood Urine UA NEGATIVE (Negative); Protein Urine UA NEGATIVE (Negative); Specific Gravity Urine UA <=1.005 (1.000-1.035); Urobilinogen Urine UA 0.2 E.U./dL (0.2)
[2023-03-20 17:16] LABS: Appearance Urine UA Slightly Cloudy; Bacteria Urine Few (2-10); Culture Indicated Urine Cult Not Indicated; RBC Urine 0-1/HPF (0-5/HPF); Squamous Epithelial Cell Urine 1-5 /HPF (0-5/HPF); WBC Urine 0-1/HPF (0-5/HPF)
[2023-03-20 17:25] LABS: Add Manual Diff / Slide Review NO; Basophils Absolute Auto 100 /uL (0-100); Basophils Percent Auto 0.6 % (0-2); Eosinophils Absolute Auto 100 /uL (0-450); Eosinophils Percent Auto 0.7 % (2-4); Hematocrit 30.7 % (36-46); Hemoglobin 10.5 g/dL (12.0-16.0); Lymphocytes Absolute Auto 1800 /uL (1100-4500); Lymphocytes Percent Auto 20.1 % (25-40); Mean Corpuscular HGB Conc 34.1 % (30-36); Mean Corpuscular Hemoglobin 26.6 PG (26-34); Monocytes Absolute Auto 800 /uL (0-900); Monocytes Percent Auto 9.2 % (3-14); Neutrophils Absolute Auto 6100 /uL (1500-7000); Neutrophils Percent Auto 69.4 % (50-75); Platelet Count 200 X10^3/uL (150-400); Red Blood Cell Count 3.94 X10^6/uL (4.0-5.2); Red Cell Distribution Width 15.2 % (11.6-14.8); White Blood Cell Count 8.8 X10^3/uL (4.5-11.0)
[2023-03-20] MEDS: MORPHINE 4 MG/ML INJ IM ×2 (17:29→21:32)
[2023-03-20] MEDS: BETAMETHASONE 30 MG/5 ML MDV 12 MG IM (17:30)
[2023-03-20 18:53] LABS: Strep Grp B PCR NEG for Grp B Strep
--- NOTE | 2023-03-20 19:31 | P.TNLD_ITS ---
Visit Information Visit Information Date of evaluation: 03/20/23 Primary OB Provider: Iza De La Fuente Reason for Evaluation: Yes pre-term labor and Yes rule out labor Comments/Additional reasons for admission: 32yo at 36+3wks evaluated in triage for painful ctx x24hrs. She denies LOF or VB. Also felt like there was less movement today. Vital Signs Vital Signs: BP 114/65, P 85, T 36.6 PFSH Medical History (Updated 03/20/23 @ 19:37 by Iza De La Fuente DO) H/O prematurity Autism Surgical History (Updated 08/30/22 @ 11:07 by Holly Browne, RN) [place] teeth extracted delivery delivered (10/27/12) delivery delivered (~03/18/18) Family History (Updated 08/30/22 @ 11:10 by Holly Browne, CARLOS) Mother Hypertension Grandmother History of hysterectomy Emphysema lung Heart disease Smoker Grandfather Family estrangement Father Liver disease Alcohol abuse Social History marital status: details: Jimy [phone] number of children: 3 (plus stepson part-time) household members: spouse and children lives independently: Yes caregiver/support person: Yes 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 occupational exposures/hazards: Yes special marv needs: No travel history: over 6 months ago seatbelt use: always water heater temp set < 120 deg: Yes working smoke detector in home: Yes fire extinguisher in home: Yes carbon monox detector in home: Yes firearms in home: No do you feel safe at home: Yes in current or past relationships, have you been: other (In past relationship) Smoking Status: Former smoker Tobacco: How many years used: 7 (off and on) second hand exposure: No alcohol intake: former (rarely when not ) substance use type: marijuana (not while /) during the past year weight has: remained stable well-balanced diet: about half the time daily servings fruits/ve-4 caffeine: Yes (aware of 200mg limit, mostly soft drinks) eating out: 1-3 times/week Type(s) of exercise: other (Hiking) and yoga frequency: 1-2 times per week Review of Systems Review of Systems ROS: Yes All systems reviewed with the patient and are negative except as otherwise documented Exam Const General: cooperative and No acute distress Other: initial SVE at 4:45pm: unable to assess due to extremely posterior and pt intolerance of exam repeat SVE at 7:15pm: outer os 1cm (unable to assess inner os due to pt intolerance of exam), long, high Objective Labs 03/20/23 17:15 Labs: Laboratory Results - last 24 hr 03/20/23 03/20/23 03/20/23 16:40 16:45 17:15 WBC 8.8 RBC 3.94 L Hgb 10.5 L Hct 30.7 L MCV 78.0 L MCH 26.6 MCHC 34.1 RDW 15.2 H Plt Count 200 Neut % (Auto) 69.4 Lymph % (Auto) 20.1 L [place] % (Auto) 9.2 Eos % (Auto) 0.7 L Baso % (Auto) 0.6 Neut # (Auto) 6100 Lymph # (Auto) 1800 [place] # (Auto) 800 Eos # (Auto) 100 Baso # (Auto) 100 Urine Color Yellow Urine Appearance Slightly cloudy Urine pH 7.0 Ur Specific [place] <=1.005 Urine Protein Negative Urine Glucose (UA) Negative Urine Ketones Negative Urine Occult Blood Negative Urine Nitrate Negative Urine Bilirubin Negative Urine Urobilinogen 0.2 Ur Leukocyte Esterase Negative Urine RBC 0-1/hpf Urine WBC 0-1/hpf Ur Squamous Epith Cells 1-5 /hpf Urine Bacteria Few (2-10) H Ur Culture Indicated? Cult not indicated Group B Strep (PCR) Neg for grp b strep Blood Type O Positive Antibody Screen Negative Evaluation Evaluation Baseline heart rate: 120 Variability: Moderate (11-25) monitor accelerations: Present Monitor Decelerations: Absent Contraction Frequency (minutes): 3 Uterine Contraction Intensity: Mild Status: Category l Comments: Bedside sono: vertex, SDP 2.8cm Diagnosis, Plan/Disposition Final Diagnosis (1) False labor before 37 completed weeks of gestation: Status: Acute Plan/Disposition Plan: 32yo at 36+3wks here for r/o PTL. Pt noted symptomatic improvement in her contraction intensity after IV hydration. GBS sent. Given BMTZ #1. Given PO nifedipine as well, with improvement in her contraction intensity and frequency. -reviewed precautions and reasons to return to the center -advised to f/u tomorrow for BMTZ #2 OB Disposition: home
[2023-03-20] MEDS: NIFEdipine 10 MG CAPSULE PO ×3 (20:07→20:48)
== END 2023-03-20 22:08 | disposition home or self-care (01) ==
PROVIDERS: Admitting Provider Student in an Organized Health Care Education/Training Program; PCP Family Medicine; Referring Provider Student in an Organized Health Care Education/Training Program; Visit Provider Student in an Organized Health Care Education/Training Program
DX: O47.03 False labor before 37 completed weeks of gestation, third trimester (principal); O36.8130 Decreased fetal movements, third trimester, not applicable or unspecified; Z3A.36 36 weeks gestation of pregnancy
CPT/HCPCS: 36415; 59025; 59050; 81001; 85025; 86850; 86900; 86901; 87081; 87653; 96360; 96361; 96372; G0378; G0379; J0702; J2270

== ENCOUNTER 2023-03-21 17:58 | Outpatient (CLI) | payer OTHER, MEDICAID, SELFPAY ==
[2023-03-21] MEDS: BETAMETHASONE 30 MG/5 ML MDV 12 MG IM (18:35)
--- NOTE | 2023-03-22 07:29 | PM.OBTRLD ---
Visit Information Visit Information Date of evaluation: 03/21/23 Primary OB Provider: Iza De La Fuente On-call OB Provider: Nicole Mares Reason for Evaluation: Yes non-stress test Comments/Additional reasons for admission: 32yo at 36.4w presenting for scheduled second betamethasone dose and NST. She was evaluated yesterday for labor. 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 occupational exposures/hazards: Yes special marv needs: No travel history: over 6 months ago seatbelt use: always water heater temp set < 120 deg: Yes working smoke detector in home: Yes fire extinguisher in home: Yes carbon monox detector in home: Yes firearms in home: No do you feel safe at home: Yes in current or past relationships, have you been: other (In past relationship) Smoking Status: Former smoker Tobacco: How many years used: 7 (off and on) second hand exposure: No alcohol intake: former (rarely when not ) substance use type: marijuana (not while /) during the past year weight has: remained stable well-balanced diet: about half the time daily servings fruits/ve-4 caffeine: Yes (aware of 200mg limit, mostly soft drinks) eating out: 1-3 times/week Type(s) of exercise: other (Hiking) and yoga frequency: 1-2 times per week Review of Systems Review of Systems ROS: Yes All systems reviewed with the patient and are negative except as otherwise documented Evaluation Evaluation Baseline heart rate: 130 Variability: Moderate (11-25) monitor accelerations: Present Monitor Decelerations: Absent Contraction Frequency (minutes): 0 Category of Tracing: Reactive Status: Category l Diagnosis, Plan/Disposition Plan/Disposition Plan: 32yo at 36.4w, concern for threatened labor - Received betamethasone #2 - NST reactive OB Disposition: home
== END 2023-03-21 18:45 | disposition home or self-care (01) ==
LOC: OB 03-25 12:00
PROVIDERS: PCP Family Medicine; Referring Provider Student in an Organized Health Care Education/Training Program; Visit Provider Student in an Organized Health Care Education/Training Program
DX: O47.03 False labor before 37 completed weeks of gestation, third trimester (principal); Z3A.36 36 weeks gestation of pregnancy
CPT/HCPCS: 59025; 96372; G0378; G0379; J0702

== ENCOUNTER 2023-03-26 16:23 | Outpatient (CLI) | payer OTHER, MEDICAID, SELFPAY ==
[2023-03-26] MEDS: MORPHINE 4 MG/ML INJ IM (17:24)
== END 2023-03-26 17:35 | disposition home or self-care (01) ==
LOC: LABOR 17:12 → OB 04-01 11:53
PROVIDERS: PCP Family Medicine; Referring Provider Student in an Organized Health Care Education/Training Program; Visit Provider Student in an Organized Health Care Education/Training Program
DX: O47.1 False labor at or after 37 completed weeks of gestation (principal); O36.8130 Decreased fetal movements, third trimester, not applicable or unspecified; Z3A.37 37 weeks gestation of pregnancy
CPT/HCPCS: 59025; 96372; G0378; G0379; J2270

== ENCOUNTER 2023-04-01 16:30 | Inpatient (IN) | payer OTHER, MEDICAID, SELFPAY ==
[2023-04-01] VITALS (7 sets, daily range): BP systolic 112–134; BP diastolic 67–77; PULSE 62–72; RESP 12–20; TEMP 36.1–36.4; O2SAT 98–100
[2023-04-01] MEDS: LACTATED RINGERS 1,000 ML 999 ML IV ×2 (17:45→18:53)
--- NOTE | 2023-04-01 17:55 | PM.OBHP.IH.1 ---
OB HPI Date/Time Date of admission: 04/01/23 Date Patient Seen: 04/01/23 Time Patient Seen: 17:55 History of Present Condition Chief complaint: NST VITO Calculator Estimated Delivery Date Method Current WG Current Estimate 04/14/23 LMP (Certain) 38w 1d Other Estimates 04/18/23 Ultrasound #1 37w 4d Estimated Gestational Age (weeks): 38+1 : 4 Para: 3 care: good care, initiated at week # (12), number of visits (7) and pounds weight gain (43) Dating criteria OB: LMP confirmed by 1st trimester US Ultrasounds: normal 1st trimester US and abnormal US findings Abnormal ultrasound findings: Marginal cord insertion Obstetrical complications: other (Marginal cord insertion, oligohydramnios) Medical complications OB: none Indications Operative indications ( section): previous uterine surgery Preadmission Labs Last OB Lab Results: Blood Type O Positive 03/20/23 17:15 Antibody Screen Negative 03/20/23 17:15 Hematocrit 30.7 % (36-46) L 03/20/23 17:15 Hemoglobin 10.5 g/dL (12.0-16.0) L 03/20/23 17:15 Hepatitis B Surface Antigen Negative s/c (NEGATIVE) 11/07/22 09:38 Hepatitis C Antibody Negative s/c (NEGATIVE) 11/07/22 09:38 Rubella Antibody 86.2 IU/mL (>15) 11/07/22 09:38 Varicella-Zoster IgG Antibody <135 index (Immune >165) L 11/07/22 09:38 Glucose 1 Hour 93 mg/dL (76-139) 02/20/23 10:45 Group B Streptococcus (PCR) Neg for grp b strep 03/20/23 16:45 -: Chlamydia screen: negative, Gonorrhea screen: negative and Urine: negative -: PAP smear: Normal (2021) Genetic Screens: Quad screen: Normal External Labs -: Urine: negative Prior (ies) Past Pregnancies Del. Date GA/Weeks Labor Lgth Wt Sex Route Outcome Anesthesia Place Delv Breastfeed Preg Comp Name 10/27/12 37 Female live - full term Dr. Estela Watters 2 months failure to progress [place] 03/18/18 40 Female live - full term LenaGiorgio Bolton 6 months other [place] 01/19/20 ~39 Male live - full term [facility] 6 months other Meg Delivery Date: 10/27/12 Last Updated by: Casie Warren MA States was never in active labor, failure to progress. After baby's heart rate kept dropping emergency was done. Delivery Date: 03/18/18 Last Updated by: Casie Warren MA Attempted , states baby's oxygen level was dropping so delivery Delivery Date: 01/19/20 Last Updated by: Holly Browne RN hyperemesis Evaluation Evaluation Baseline heart rate: 145 Variability: Moderate (11-25) monitor accelerations: Present Monitor Decelerations: Variable (recurrent down to 90's) Status: Category ll PFSH Medical History H/O prematurity Autism Surgical History [place] teeth extracted delivery delivered (10/27/12) delivery delivered (~03/18/18) Family History Mother Hypertension Grandmother History of hysterectomy Emphysema lung Heart disease Smoker Grandfather Family estrangement Father Liver disease Alcohol abuse Social History marital status: details: Jimy [phone] number of children: 3 (plus stepson part-time) household members: spouse and children lives independently: Yes caregiver/support person: Yes 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 occupational exposures/hazards: Yes special marv needs: No travel history: over 6 months ago seatbelt use: always water heater temp set < 120 deg: Yes working smoke detector in home: Yes fire extinguisher in home: Yes carbon monox detector in home: Yes firearms in home: No do you feel safe at home: Yes in current or past relationships, have you been: other (In past relationship) Smoking Status: Former smoker Tobacco: How many years used: 7 (off and on) second hand exposure: No alcohol intake: former (rarely when not ) substance use type: marijuana (not while /) during the past year weight has: remained stable well-balanced diet: about half the time daily servings fruits/ve-4 caffeine: Yes (aware of 200mg limit, mostly soft drinks) eating out: 1-3 times/week Type(s) of exercise: other (Hiking) and yoga frequency: 1-2 times per week Meds Home Medications and Allergies Home Medications Medication Instructions Recorded Confirmed Type dextroamphetamine-amphetamine 10 10 mg PO DAILY PRN adhd #30 tabs 07/16/22 04/01/23 Rx mg tablet (Adderall) diazepam 5 mg tablet (Valium) 5 mg PO BID PRN severe anxiety #10 07/16/22 04/01/23 Rx tabs prenat.vits,geraldo,red-ptzc-zcqpk 1 tab PO DAILY #90 tabs 08/20/22 04/01/23 Rx pyridoxine (vitamin B6) 100 mg 25 mg (1/4 x 100 mg) PO .COMPLEX 08/20/22 04/01/23 Rx tablet #30 tabs escitalopram oxalate 10 mg tablet 10 mg PO DAILY #90 tabs 08/24/22 04/01/23 Rx (Lexapro) Allergies Allergy/AdvReac Type Severity Reaction Status Date / Time No Known Drug Allergies Allergy Verified 04/01/23 16:08 OB Exam Narrative Exam Narrative: Generally: Patient lying in bed, no acute distress Lungs: Clear to auscultation bilaterally Cardiovascular: Regular rate and rhythm Fundal height: 38 cm Estimated weight: 7 lb Ext: Trace edema Assessment and Plan Assessment and Plan Assessment and Plan narrative: Assessment: 32-year-old 4 para 3 at 38-,1/7 weeks gestation with oligohydramnios, grade 3 placenta, and recurrent variable decelerations Previous section x3 Plan: Repeat low-transverse section and Mirena IUD placement The risks, benefits, and alternatives to the procedure were explained to the patient. The risks including bleeding, infection, injury to the bowel, bladder, or ureters. She understands these risks and agrees to proceed. A full par Q was held and consent form was signed. Risks of putting in the IUD are bleeding and infection. Uterine perforation. Patient understands that there is a higher risk of expulsion while putting this in during the . Time Spent with Patient Total time spent with greater than 50% in coordination of care (as documented) at patient's floor/unit and/or counseling patient:: 15-24 minutes
--- NOTE | 2023-04-01 18:03 | PM.PREOP ---
Pre-operative Note Interval Note History & Physical reviewed/Exam performed by Physician: Yes Changes to H&P: No H&P completed within 30 days and has changed as indicated here:: 04/01/23
[2023-04-01 18:07] LABS: Add Manual Diff / Slide Review NO; Basophils Absolute Auto 100 /uL (0-100); Basophils Percent Auto 0.9 % (0-2); Eosinophils Absolute Auto 100 /uL (0-450); Eosinophils Percent Auto 0.9 % (2-4); Hematocrit 32.7 % (36-46); Hemoglobin 10.8 g/dL (12.0-16.0); Lymphocytes Absolute Auto 2000 /uL (1100-4500); Mean Corpuscular HGB Conc 33.1 % (30-36); Mean Corpuscular Hemoglobin 26.1 PG (26-34); Mean Corpuscular Volume 78.9 fL (80-100); Monocytes Absolute Auto 800 /uL (0-900); Monocytes Percent Auto 8.4 % (3-14); Neutrophils Absolute Auto 6100 /uL (1500-7000); Neutrophils Percent Auto 67.8 % (50-75); Platelet Count 190 X10^3/uL (150-400); Red Blood Cell Count 4.15 X10^6/uL (4.0-5.2)
[2023-04-01] MEDS: CITRIC ACID/SODIUM CITRATE 15 ML SOLUTION 30 ML PO (18:08)
[2023-04-01] MEDS: CEFAZOLIN 2 GM/100 ML PREMIX 100 ML IV (18:11)
--- NOTE | 2023-04-01 18:49 | SUR.OPER ---
VIABLE MALE INFANT DELIVERED AT 1851. cORD BLOOD AND PLACENTA TO OB WITH RN.
--- NOTE | 2023-04-01 19:02 | SUR.OPER ---
ANTWON lOT#[id number]
--- NOTE | 2023-04-01 19:07 | P.PCN_ITS ---
<Statement entered by Laura Rutledge DO - 04/02/23 10:34> See paper anesthesia record for anesthesia end time Regional Block Pre-procedure Labs: Hct 32.7 % (36-46) L 04/01/23 17:53 Plt Count 190 X10^3/uL (150-400) 04/01/23 17:53 Medications: Current Medications Generic Name Dose Route Start Last Admin Trade Name Freq PRN Reason Stop Dose Admin Butorphanol Tartrate 0.5 mg 04/01/23 19:06 Butorphanol 1 Mg/Ml Vial IV 04/02/23 19:06 Q3HR PRN PRURITUS Diphenhydramine HCl 25 mg 04/01/23 19:06 Diphenhydramine 50 Mg/Ml Vial IV 04/02/23 19:06 Q3HR PRN PRURITUS Oxytocin/Lactated Ringer's 30 unit in 500 mls @ 200 mls/hr 04/01/23 17:53 Oxytocin Premix IV CONT PRN Bleeding Protocol Sodium Chloride 1,000 mls @ 100 mls/hr 04/01/23 19:15 Normal Saline 0.9% IV 04/02/23 19:06 CONT NICK Metoclopramide HCl 10 mg 04/01/23 19:06 Metoclopramide 10 Mg/2 Ml Inj IV 04/02/23 19:06 Q4H PRN Nausea Nalbuphine HCl 5 mg 04/01/23 19:06 Nalbuphine 20 Mg/Ml Ampul IV Q6H PRN PRURITIS Naloxone HCl 0.4 mg 04/01/23 19:06 Naloxone 0.4 Mg/Ml Vial IV Q2MIN PRN Opiate Reversal Ondansetron HCl 4 mg 04/01/23 21:00 Ondansetron 4 Mg/2 Ml Inj IV 04/02/23 01:01 Q4HR NICK Oxycodone HCl 5 mg 04/01/23 19:06 Oxycodone Ir 5 Mg Tablet PO 04/02/23 19:06 Q4HR PRN Pain, Moderate (4-6) Oxytocin 10 unit 04/01/23 17:53 Oxytocin 10 Unit/Ml Vial IM NOW PRN Bleeding Allergies: Allergies Allergy/AdvReac Type Severity Reaction Status Date / Time No Known Drug Allergies Allergy Verified 04/01/23 16:08 Procedure Insertion date: 04/01/23 Insertion time: 18:21 Prep/Local: 1% lidocaine (Chloraprep) Interspace: L3-4 Patient position: sitting Insertion: Yes CSF Initial Medications BOLUS DOSE time: 18:21 BOLUS DOSE med: other (Spinal: bupivacaine 12 mg + 25 mcg fentanyl + 0.25 mg Duramorph via 25g Teena) Post-procedure Anesthesia time START: 18:11
--- NOTE | 2023-04-01 19:46 | P.OP_ITS ---
Operative Date/Time/Diagnoses Date of procedure: 04/01/23 Time of procedure: 19:46 Pre-op diagnosis: 38+1 wks gestation Previous section x3 Nonreassuring heart rate tracing Post-op diagnosis: same Procedure & Clinicians Same procedure as scheduled: Yes Surgeon: Brittanie Keene Click Yes if Unassisted: No Track Laying Equipment Operator: Gretchen Esposito Anesthesia Type: Spinal (With Duramorph) Operative Notes Findings: Live male in the direct occiput posterior presentation Dense fascial adhesions Adhesions between the uterus and bladder Normal tubes and ovaries Meconium-stained amniotic fluid Closure Type: primary Specimen(s): cord blood, placenta and tubes/segments of tubes Intraoperative meds administered: Acetaminophen, Duramorph, Ketorolac, Pitocin and Tranexamic acid Applied: Catheter (To continuous drainage) Estimated Blood Loss (mL): 400 Blood products transfused: none Procedure in detail: The patient was taken to the operating room where she was placed in the seated position. Spinal anesthesia with Duramorph was administered. The patient was then placed in the dorsal supine position with a leftward tilt. She was prepped and draped in the usual sterile fashion. A timeout was performed. After spinal analgesia was found to be adequate, a Pfannenstiel skin incision was made through the previous incision and carried through to the underlying layer fascia. The fascia was nicked in the midline, and the incision extended bilaterally with the Kaufman scissors. The superior aspect of the fascial incision was grasped with a Doris clamps, elevated, and the underlying rectus muscles dissected off sharply and bluntly. Attention was then turned to the inferior aspect of this incision which in a similar fashion was grasped with a Doris clamps, elevated, and the underlying rectus muscles dissected off sharply and bluntly. The rectus muscles were in the midline. The peritoneum was identified, grasped between 2 hemostats, and entered sharply with the Metzenbaum scissors. There were some adhesions in the fascia/rectus muscle. These were taken down carefully. This incision was extended superiorly and inferiorly with good visualization of the bladder. The bladder blade was inserted. There were found to be adhesions between the bladder and uterus. These were taken down carefully. The vesicouterine peritoneum was identified, grasped with the pickup, and entered sharply with the Metzenbaum scissors. This incision was extended bilaterally, and the bladder flap was created digitally. The bladder blade was reinserted. The lower uterine segment was incised in a transverse fashion with the scalpel. Upon entering the amniotic sac there was a small amount of meconium-stained amniotic fluid. The infant's head was delivered without difficulty. The nose and mouth were suctioned with bulb suction. The remainder of the body delivered without difficulty. The cord was double clamped and cut after 1 minute. The infant was handed off to waiting RN and RT. a piece of cord for cord pH was obtained. Cord bloods were obtained. The placenta was delivered by expression. The uterus was cleared of all clots and debris. The uterine incision was repaired with #1 chromic in a running interlocking fashion, and a second layer the same suture was used for an imbricating layer. There was some bleeding in the middle of the incision. There was very thin lower portion to the uterus. A [id number] suture [id number] was placed for hemostasis. Hemostasis was achieved. The tubes and ovaries were examined and were found to be normal. The gutters were cleared of all clots and debris. The parietal peritoneum was closed using 2-0 Vicryl in a running fashion. The fascia was reapproximated using 0 Vicryl in a running fashion. The subcutaneous layer was copiously irrigated with warm normal saline. 5 simple interrupted sutures of 3- 0 Vicryl were placed to reapproximate the subcutaneous layer. The skin was closed with 4-0 Monocryl in a subcuticular fashion. Steri-Strips were placed. An Aquacel dressing was placed. The uterus was expressed of a small amount of old blood. Sponge, lap, and instrument counts were correct x-2. The patient tolerated the procedure well, and was taken to PACU in stable condition. Complications: none Baby 1: Infant Gender: Male Presentation: vertex Position: Occiput Posterior Placental Delivery Description: Expressed Cord Vessel Description: 3 Vessels and Clamped/Cut (After 1 minute) score (1 min): 8 score (5 min): 9 weight: 6 lb 3 oz Post-operative Condition: stable Disposition: PACU Aftercare: routine postop
--- NOTE | 2023-04-01 20:29 | SUR.PHASEI ---
Pt transferred to room 1 in bed with SBAR report and bedside handoff to Rosalina RN including dressing and fundus check. Dad at bedside with baby. Pt alert, oriented, tolerated ice chips and juice and denied any pain.
[2023-04-02] MEDS: KETOROLAC 30 MG/ML VIAL IV ×3 (01:37→14:00)
[2023-04-02] MEDS: ACETAMINOPHEN 325 MG TABLET 650 MG PO ×4 (01:37→20:19)
[2023-04-02] MEDS: LANOLIN OINT 7 GM 1 APPLIC TOP (01:38)
[2023-04-02] MEDS: OXYCODONE IR 5 MG TABLET PO ×3 (06:05→20:19)
[2023-04-02] MEDS: ESCITALOPRAM 10 MG TABLET PO (08:00)
[2023-04-02] MEDS: PRENATAL VIT,CALC/IRON/FOLIC 1 TABLET 1 TAB PO (08:00)
[2023-04-02] MEDS: DOCUSATE 100 MG CAPSULE PO (08:00)
[2023-04-02] MEDS: IBUPROFEN 600 MG TABLET PO (20:19)
--- NOTE | 2023-04-02 23:17 | P.PNOB_ITS ---
Subjective - OB Subjective Patient comments: no complaints, pain well controlled, tolerating diet and flatus present baby status: doing well and nursing well Maria Stein feeding status: exclusively breast feeding Date Patient Seen: 04/02/23 Time Patient Seen: 17:05 Interval history: Postop day # 1 status post repeat section Patient has voided without the catheter. Her pain is well controlled. She is ambulating without assistance. She is passing flatus. She has tolerating a diet. going well. Exam Vital Signs (past 8 hours): Oxygen Delivery Method Room Air Narrative Exam Narrative: Generally: Patient is sitting up in bed, no acute distress Lungs: Clear to auscultation bilaterally Cardiovascular: Regular rate and rhythm Fundus: Firm at U -1 Incision: 3 cm x 3 cm area of old blood on the Aquacel dressing on the left side. Otherwise intact Extremities: No edema, negative Hom[place] Objective Labs 04/01/23 17:53 Assessment & Plan Plan day: 1 plan OB: routine postop care Time Spent With Patient Time: Total time spent is greater than 50% in coordination of care (as documented) at patient's floor/unit and/or counseling patient: Time with patient: 15-24 minutes
[2023-04-02] MEDS: OXYCODONE IR 10 MG TABLET PO (23:56)
[2023-04-03] MEDS: IBUPROFEN 600 MG TABLET PO ×2 (03:48→09:15)
[2023-04-03] MEDS: ACETAMINOPHEN 325 MG TABLET 650 MG PO ×2 (03:49→09:15)
[2023-04-03] MEDS: OXYCODONE IR 10 MG TABLET PO (03:49)
[2023-04-03] MEDS: DOCUSATE 100 MG CAPSULE PO (09:15)
[2023-04-03] MEDS: PRENATAL VIT,CALC/IRON/FOLIC 1 TABLET 1 TAB PO (09:15)
[2023-04-03] MEDS: ESCITALOPRAM 10 MG TABLET PO (09:15)
--- NOTE | 2023-04-03 10:58 | P.DS_ITS ---
Discharge Providers Provider Date of admission: 04/01/23 16:30 Discharge Date: 04/03/23 Primary care physician: Butch Reyes MD Consults: 04/01/23 20:17 Consult to Nursing Home Admissions Director Routine Comment: Discharge provider: Brittanie Keene MD Summary Hospital Course Date Patient Seen: 04/03/23 Time Patient Seen: 09:00 Diagnoses: 38+ 1 week's gestation Meconium-stained fluid Nonreassuring heart rate tracing Previous section x3 Repeat low-transverse section Hospital Course: Patient is a 32-year-old 4 para 4 who presented to the office on April 01, 2023 for a routine visit. She was found to have borderline amniotic fluid and a grade 3 placenta. She was sent to labor and delivery for nonstress test. On the nonstress test she was having recurrent variable decelerations down to the 90s. A decision was made to proceed with a repeat low-transverse section. She underwent this procedure without complication. Her postoperative course was unremarkable. On postop day # 1 she was voiding without the catheter, tolerating a diet, passing flatus, pain well controlled, and going well. She is discharged home. She will follow-up at 1 week for Aquacel dressing removal. Discharge instructions given. Peripartum Data Infant Delivery Method: Section Procedures: Spinal anesthesia with Duramorph Repeat low-transverse section complications: none [place] 1: Gender: Male Disposition of : home Status at Discharge Cognitive/behavioral status at discharge: oriented Functional status at discharge: independent ambulation Overall status at discharge: patient is progressing back to baseline Time Spent with Patient Time attestation: Total time spent providing and/or coordinating discharge services: Time spent: Less than 30 minutes Objective Labs 04/01/23 17:53 Exam Vital Signs (past 8 hours): Oxygen Delivery Method Room Air Narrative Exam Narrative: Generally: Patient is sitting up on edge of bed, no acute distress Lungs: Clear to auscultation bilaterally Cardiovascular: Regular rate and rhythm Fundus: Firm at U -1 Incision: Intact with Aquacel dressing. 3 x 3 cm old blood spot on the left edge of the incision. Extremities: No edema, negative Homans Discharge Plan Discharge Plan Patient Disposition: Home Provider Discharge Comment: Call with fever, chills, redness or drainage around the incision, or bleeding vaginally more than a pad in an hour Ibuprofen 600 mg every 6 hours as needed for cramping Tylenol 650 mg every 6 hours as needed for pain Push oral fluids Stool softeners until bowel returns to normal Discharge orders & Medications Prescriptions: New oxycodone 5 mg tablet 5 mg PO Q6H PRN (Reason: pain) Qty: 20 0RF Continued escitalopram oxalate [Lexapro] 10 mg tablet 10 mg PO DAILY Qty: 90 3RF prenat.vits,geraldo,fkm-zqww-dmeaj Tablet 1 tab PO DAILY Qty: 90 3RF Discontinued dextroamphetamine-amphetamine [Adderall] 10 mg tablet 10 mg PO DAILY PRN (Reason: adhd) Qty: 30 0RF Rx Instructions: take 4-6 hours after first dosage diazepam [Valium] 5 mg tablet 5 mg PO BID PRN (Reason: severe anxiety) Qty: 10 0RF pyridoxine (vitamin B6) 100 mg tablet 25 mg PO .COMPLEX Qty: 30 8RF Rx Instructions: 25 mg orally up to 6 times a day as needed for nausea; Follow up/Referrals: Merissa Elizabeth MD [Physician] - 05/14/23 10:45 am (6 week check up ) Brittanie Keene MD [Physician] - 04/09/23 2:00 pm (One week follow up, dressing removal. 04/09/2023) Diet/Activity/Treatments Diet: Regular Activity: No heavy lifting Skin/Wound/Dressing Care Report to your healthcare provider any signs of infection, such as:: chills, fever, increased pain, unusual drainage and unusual redness Dressing: Do not remove Visit Report/Discharge Packet Instructions: , DI for , DI for Prescription Opioid Use Stand Alone Forms: Patient Portal/API, Stroke Signs & Symptoms Discharge Data Primary Care Provider: Butch Reyes
[2023-04-03 11:29] VITALS: BP 123/83; PULSE 75; RESP 16; TEMP 36.7
== END 2023-04-03 10:36 | disposition home or self-care (01) | DRG 540 ==
PROVIDERS: Admitting Provider Obstetrics & Gynecology; PCP Family Medicine; Referring Provider Obstetrics & Gynecology; Visit Provider Obstetrics & Gynecology
PROC: 10D00Z1 Extraction of Products of Conception, Low, Open Approach (ICD-10-PCS; CPT 59514; principal; 2023-04-01 18:15)
DX: O41.03X0 Oligohydramnios, third trimester, not applicable or unspecified (principal); Z3A.38 38 weeks gestation of pregnancy; Z37.0 Single live birth; O76 Abnormality in fetal heart rate and rhythm complicating labor and delivery; O99.892 Other specified diseases and conditions complicating childbirth; N73.6 Female pelvic peritoneal adhesions (postinfective)
CPT/HCPCS: 36415; 58300; 59050; 59514; 85025; 86850; 86900; 86901; G0379; J0690; J1100; J1885; J2274; J2405; J2765; J3010; J7298

== ENCOUNTER 2023-11-28 12:13 | Day surgery (SDC) | payer OTHER, MEDICAID, SELFPAY ==
[2023-11-25 12:42] VITALS: BMI 22.8
[2023-11-28] VITALS (7 sets, daily range): BP systolic 115–130; BP diastolic 68–78; PULSE 67–98; RESP 14–20; TEMP 36.1–36.8; O2SAT 98–100; BMI 22.8
[2023-11-28] MEDS: SCOPOLAMINE 1 PATCH TOP ×2 (12:44→13:00)
[2023-11-28] MEDS: LACTATED RINGERS 1,000 ML 42 ML IV ×2 (12:57→15:03)
--- NOTE | 2023-11-28 13:16 | PM.GYNHP.1 ---
History of Present Illness History of Present Illness Reason for admission: pelvic pain (Dyspareunia) Narrative: Jennifer Stuart is a 33 year old female 4 para 4 who presents for a diagnostic laparoscopy with possible lysis of adhesions, possible excision of endometriosis. She has had pelvic pain and dyspareunia. She was diagnosed with endometriosis when she had a . 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 occupational exposures/hazards: Yes special marv needs: No travel history: over 6 months ago seatbelt use: always water heater temp set < 120 deg: Yes working smoke detector in home: Yes fire extinguisher in home: Yes carbon monox detector in home: Yes firearms in home: No do you feel safe at home: Yes in current or past relationships, have you been: other (In past relationship) Smoking Status: Former smoker Tobacco: How many years used: 7 (off and on) second hand exposure: No alcohol intake: current substance use type: marijuana (not while /) during the past year weight has: remained stable well-balanced diet: about half the time daily servings fruits/ve-4 caffeine: Yes (aware of 200mg limit, mostly soft drinks) eating out: 1-3 times/week Type(s) of exercise: other (Hiking) and yoga frequency: 1-2 times per week Meds Home Medications and Allergies Home Medications Medication Instructions Recorded Confirmed Type dextroamphetamine-amphetamine 10 10 mg PO DAILY PRN adhd #30 tabs 10/03/23 11/28/23 Rx mg tablet (Adderall) dextroamphetamine-amphetamine ER 15 mg PO DAILY #30 caps 10/03/23 11/28/23 Rx 15 mg 24hr capsule,extend release (Adderall XR) diazepam 5 mg tablet (Valium) 5 mg PO BID PRN severe anxiety #10 11/12/23 11/28/23 Rx tabs Allergies Allergy/AdvReac Type Severity Reaction Status Date / Time No Known Drug Allergies Allergy Verified 11/28/23 12:29 Exam Vital Signs (past 8 hours): - 11/28/23 12:48 Temperature 98.3 F Pulse Rate 68 Respiratory Rate 16 Blood Pressure 115/71 Pulse Oximetry 98 Oxygen Delivery Method Room Air Oxygen Delivery Method Room Air Narrative Exam Narrative: HEENT: No thyromegaly, no anterior cervical or supraclavicular lymphadenopathy. Lungs:Clear to auscultation bilaterally, no wheezes. Cardiovascular: Regular rate and rhythm, no murmurs, rubs, or gallops. Abdomen: Well-healed Pfannenstiel scars. No hepatosplenomegaly. No masses palpable. External genitalia: Normal Vagina: Normal Cervix: Normal Bimanual exam: 6 Week size anteverted uterus. Mobile. Bilateral uterosacral tenderness. Extremities: No edema Assessment & Plan Assessment & Plan narrative: Assessment: 33-year-old 4 para 4 with known history of endometriosis Dyspareunia/pelvic pain Plan: Diagnostic laparoscopy with excision of endometriosis, possible lysis of adhesions The risks, benefits, and alternatives to the procedure were explained to the patient. The risks including bleeding, infection, injury to the bowel, bladder, or ureters. She understands these risks and agrees to proceed. A full par Q was held and consent form was signed. Time-Based Coding :: [TOTAL MINUTES] spent with patient and on the chart (including review of chart, obtaining history, exam, reviewing outside data, placing orders, documenting exam and treatment plan, and counseling patient) on [DATE].
--- NOTE | 2023-11-28 13:18 | PM.PREOP ---
Pre-operative Note Interval Note History & Physical reviewed/Exam performed by Physician: Yes Changes to H&P: No H&P completed within 30 days and has changed as indicated here:: 11/28/23
--- NOTE | 2023-11-28 14:05 | SUR.OPER ---
Lithotomy on padded OR bed, head on pillow, arms secured on padded arm boards at <90 degrees abduction. Legs secured in padded yellow fins stirrups.
[2023-11-28] MEDS: BUPIVACAINE 0.5% (PF) 30 ML, EPINEPHrine 0.15 MG INJ (14:13)
--- NOTE | 2023-11-28 14:27 | P.OP_ITS ---
Operative Date/Time/Diagnoses Date of procedure: 11/28/23 Time of procedure: 14:27 Pre-op diagnosis: Dyspareunia Pelvic pain Post-op diagnosis: same Procedure & Clinicians Procedure: Procedures Operation Date: 11/28/23 13:30 Actual Procedure Side Surgeon p Diagnostic Laparoscopy Not Applicable Brittanie Keene MD Indications: 33-year-old 4 para 4 with dyspareunia and pelvic pain Was told during her that they found endometriosis and adhesions Surgeon: Brittanie Keene Anesthesia Type: General and Local Operative Notes Findings: 6 week size slightly retroverted uterus Normal tubes and ovaries Normal appendix Normal liver and gallbladder No abdominal or pelvic adhesions No evidence of endometriosis in the anterior or posterior cul-de-sac, in the bilateral ovarian fossa, or on the tubes and ovaries There is some evidence of adhesion between the bladder and the uterus secondary to previous sections Closure Type: primary Specimen(s): none Estimated blood loss (mL): 3 Blood products transfused: none Procedure in detail: After informed consent was obtained, the patient was taken to the operating room where she was placed in the dorsal supine position. After adequate general endotracheal anesthesia was achieved, she was placed in the dorsal lithotomy position, and prepped and draped in the usual sterile fashion. A time-out was performed. A bivalve speculum was placed into the vagina and the anterior lip of the cervix was grasped with a single-tooth tenaculum. The cervical os was sequentially dilated until the Zumi uterine manipulator could pass easily into the endometrial cavity. The single-tooth tenaculum was removed from the anterior lip of the cervix. The bivalve speculum was removed from the vagina. Attention was then turned to the abdomen where 6 cc of 0.5% Marcaine with epine phrine were injected in the umbilical fold. A 5 mm incision was made. The Veress needle was placed into the peritoneal cavity, and its placement confirmed by aspiration and drop test. The abdominal cavity was insufflated with 3.4 L of CO2. The Veress needle was removed, and a 5 mm trocar was placed without difficulty. A second incision was made 4 cm left lateral to the umbilicus after 6 cc of 0.5% Marcaine with epinephrine were injected. A second 5 mm trocar was placed under direct visualization. Using the probe and the patient in Trendelenburg the pelvis and abdomen were examined with the findings noted above. The instruments were removed from the abdomen. The CO2 was allowed to escape. The 2 incisions were closed with 4-0 Monocryl in a subcuticular fashion. Steri-Strips and Allevyn dressings were placed. The Zumi uterine manipulator was removed from the uterus. Sponge, lap, and instrument counts were correct x2. The patient tolerated the procedure well, and was taken to PACU in stable condition. Complications: none Post-operative Condition: stable Disposition: PACU Plan for aftercare: Home after recovery
[2023-11-28] MEDS: OXYCODONE IR 5 MG TABLET PO ×2 (14:45→15:00)
[2023-11-28] MEDS: ONDANSETRON 4 MG/2 ML INJ IV (15:00)
== END 2023-11-28 15:56 | disposition home or self-care (01) ==
PROVIDERS: PCP Family Medicine; Referring Provider Obstetrics & Gynecology; Visit Provider Obstetrics & Gynecology
PROC: 0U5B4ZZ Destruction of Endometrium, Percutaneous Endoscopic Approach (ICD-10-PCS; CPT 58662; principal; 2023-11-28 13:30)
DX: N94.10 Unspecified dyspareunia (principal); N80.9 Endometriosis, unspecified; N73.6 Female pelvic peritoneal adhesions (postinfective)
CPT/HCPCS: 49320; 81025; J0171; J0330; J1100; J1885; J2250; J2405; J2704; J3010